=== PATIENT | male | born 1960 | race African-American/Black ===

== ENCOUNTER 2025-04-01 14:04 | Outpatient (AMB) | payer OTHER, SELFPAY ==
--- OUTSIDE RECORDS SUMMARY | 2025-04-01 14:51 | XMS_ITS ---
Author Name [facility] Organization Unknown History of Medication Use Medication Directions Dispensed Refills Start Date End Date Stat us hydroCHLOROthiazide (HYDRODIURIL) tablet 12.5 mg 12.5 mg, oral, Daily, First dose on Tue07/18/24 at 0900, Phase II/On Unit 07/18/2024 active pantoprazole (PROTONIX) EC tablet 40 mg 40 mg, oral, Every morning before breakfast, First dose on Tue07/18/24 at 0700, Phase II/On Unit, Do not crush, chew, or split. 07/18/2024 active senna-docusate (PERICOLACE) 8.6-50 mg per tablet 1 tablet 1 tablet, oral, 2 times daily, First dose on Tue07/17/24 at 2100, Phase II/On Unit, Start evening POD#0 Hold for loose stools Hold for patients with history of IBS, IBO, ileostomy 07/18/2024 active aspirin 81 mg EC tablet Take 1 tablet (81 mg total) by mouth 2 (two) times a day. 07/17/2024 08/29/19 25 active docusate sodium (COLACE) 100 mg capsule Take 1 capsule (100 mg total) by mouth 2 (two) times a day. 07/17/2024 08/17/19 25 active ibuprofen (ADVIL,MOTRIN) 800 mg tablet Take 1 tablet (800 mg total) by mouth 3 (three) times a day. 07/17/2024 08/17/19 25 active acetaminophen (TYLENOL) tablet 1,000 mg 1,000 mg, oral, Once, On Tue07/17/24 at 0730, For 1 dose, Preprocedure, Do NOT administer to patients with abnormal LFTs. Do NOT exceed 3,000mg (3g) in 24 hours. 07/17/2024 07/17/20 24 completed ceFAZolin (ANCEF) 2 g in sterile water 20 mL IV syringe 2 g, intravenous, Administer over 3 Minutes, Every 8 hours scheduled, First dose on Tue07/17/24 at 1830, For 1 dose, Phase II/On Unit, Give 8 hours after the intra-op dose, Indication: Prophylaxis-Giancarlo gical 07/17/2024 07/17/20 completed meloxicam (MOBIC) tablet 15 mg 15 mg, oral, Daily, First dose on Tue07/18/24 at 0900, Phase II/On Unit, DO NOT give for patients >80y.o. or eCrCl<15 mL/min <75yo: dose 15mg 75-80yo: dose 7.5mg 07/17/2024 07/17/20 active magnesium hydroxide (MILK OF MAGNESIA) 400 mg/5 mL suspension 30 mL 07/17/2024 active oxyCODONE (ROXICODONE) immediate release tablet 10 mg 10 mg, oral, Every 4 hours PRN, moderate pain, Pain scale 4-6, Starting on Tue07/17/24 at 1244, Recovery & On Unit 07/17/2024 active hydroCHLOROthiazide 12.5 mg tablet Take 1 tablet (12.5 mg total) by mouth 1 (one) time each day. 06/20/2024 active celecoxib (CeleBREX) 200 mg capsule Take 1 capsule (200 mg total) by mouth 1 (one) time each day if needed. 07/25/2023 07/18/20 aborted omeprazole (PriLOSEC) [address] capsule Take 2 capsules (40 mg total) by mouth 1 (one) time each day. 11/12/2022 active Allergies Allergen Reaction Severity Comment Documented Date Source Statu s EGG NAUSEA AND VOMITING 06/13/2020 [facility] active LISINOPRIL LOW BLOOD PRESSURE 09/10/2016 [facility] active Problems Problem Status Onset Date Problem Type Date of Resolution Source Esophagitis, Lamar grade B active 2019-01-04 ProblemAct [facility] Anxiety active 2012-10-23 ProblemAct [facility] Benign prostatic hyperplasia without lower urinary tract symptoms active 2023-03-14 ProblemAct [facility] Gait instability active 2023-09-13 ProblemAct C [facility]SFRAN Hemorrhoids active 2013-06-14 ProblemAct [facility] Hypertension active 2018-04-18 ProblemAct [facility] Vitamin D deficiency active 2018-05-16 ProblemAct [facility] Gastritis and duodenitis active 2019-01-04 ProblemAct [facility] Fatty liver active 2016-01-29 ProblemAct [facility] Primary osteoarthritis of right hip active 2023-09-13 ProblemAct [facility] Anemia active 2023-03-14 ProblemAct [facility] Tubular adenoma active 2017-10-[address] [facility] S/P total right hip arthroplasty active 2024-07-17 ProblemAct [facility] Depression active 2010-09-24 ProblemAct [facility] RAN Gait abnormality active EncounterDiagnosisAct HHCCT Encounters Encounter Type Encounter Reason Primary Diagnosis Location Date Ambulatory Presence of right artificial hip joint Presence of right artificial hip joint [facility] 07/17/2024 Care Team Organization Name Specialty Phone Email Start Date End Da te [facility] 02/01/2025 [facility] 01/24/2025 [facility] 07/08/2024 [facility] 07/06/2024
--- OUTSIDE RECORDS SUMMARY | 2025-04-01 14:51 | XMS_ITS | Clinical Summary ---
Author Organization 175 [facility] Address [address] [place] [address] Phone Care Team Providers Care Warehouse Order Puller Name Role Phone Katiuska Hawley MD Primary Care Provider [phone] Allergies Active Allergy Reactions Criticality Noted Date Comments Egg Nausea And Vomiting Low 06/13/2020 Lisinopril Low blood pressure 09/10/2016 Medications blood pressure monitor (Blood Pressure Kit) kit 3 Active omeprazole (PriLOSEC) [address] capsule TAKE 1 CAPSULE BY MOUTH EVERY DAY 90 capsule 3 5 Active amLODIPine (NORVASC) 5 mg tabletIndications :Essential (primary) hypertension Take 1 tablet (5 mg total) by mouth 1 (one) time each day. 90 tablet 2 5 Active hydroCHLOROthiazi de (HYDRODIURIL) 25 mg tablet Take 1 tablet (25 mg total) by mouth 1 (one) time each day. 90 tablet 2 5 Active Active Problems Problem Noted Date Diagnosed Date S/P total right hip arthroplasty 07/17/2024 Gait instability 09/13/2023 Primary osteoarthritis of right hip 09/13/2023 Anemia 03/14/2023 Benign prostatic hyperplasia without lower urinary tract symptoms 03/14/2023 Esophagitis, [place] grade B 01/04/2019 Gastritis and duodenitis 01/04/2019 Vitamin D deficiency 05/16/2018 Hypertension 04/18/2018 Tubular adenoma 10/11/2017 Fatty liver 01/29/2016 Hemorrhoids 06/14/2013 Anxiety 10/23/2012 Depression 09/24/2010 Encounters Date Type Department Care Team Description 02/27/2025 11:30 AM EDT Office Visit Internal Medicine - [address] [place] [address] Katiuska Hawley MD Adult general medical examination (Primary Dx); Screening for colorectal cancer; Anemia, unspecified type; Vitamin D deficiency; Primary hypertension; Screening for malignant neoplasm of prostate; Essential (primary) hypertension from Last 3 Months Surgical History Surgery Date Site/Laterality Comments TONSILLECTOMY PROCEDURE: HISTORICAL TONSILLECTOMY COLONOSCOPY PROCEDURE: HISTORICAL COLONOSCOPY ADENOIDECTOMY tonsillectomy Medical History Medical History Date Comments Anxiety 10/23/2012 DX:Anxiety Depression 09/24/2010 DX:Depression Hemorrhoids 06/14/2013 DX:Hemorrhoids Hypertension 04/18/2018 DX:Hypertension Tubular adenoma 10/11/2017 DX:Tubular adeno ma Vitamin D deficiency 05/16/2018 DX:Vitamin D deficiency Fatty liver 01/29/2016 DX:Fatty liver Esophagitis, [place] grade B 01/04/2019 DX:Esophagitis, [place] grade B Duodenitis 01/04/2019 DX:Duodenitis Esophageal stenosis 01/04/2019 DX:Esophagea l stenosis Colon polyps DX:Colon polyps Anemia DX:Anemia Family History Medical History Relation Name Comments Colon cancer Neg Hx Social History Tobacco Use Types Packs/Day Years Used Date Smoking Tobacco: Former Smokeless Tobacco: Never Alcohol Use Standard Drinks/Week Comments Yes 6 (1 standard drink = 0.6 oz pur e alcohol) 5-6 beers last etoh 1 week ago Housing Instability Answer Date Recorde d Are you worried that in the next 2 months you may not have stable housing? No 02/21/2025 Food Access & Nutrition Answer Date Rec orded Do you have access to a vari ety of food including fruits and vegetables? Yes 02/21/2025 Access to Healthcare Answer Date Record ed Within the last 3 months, carlos w many times did you visit the emergency department for your medical care? 0 02/21/2025 Health Literacy Answer Date Recorded How often do you need to hav e someone help you when you read instructions, pamphlets, or other written material from your doctor or pharmacy? Never 02/21/2025 Caregiver: How often do you need to have someone help you when you read instructions, pamphlets, or other written material from your doctor or pharmacy? Not on file 02/21/2025 Financial Risk Answer Date Recorded How hard is it for you to pa y for the very basics like food, housing, medical care, and air conditioning / heating? Not very hard 02/21/2025 Transportation Answer Date Recorded Has the lack of transportati on kept you from meetings, work, or from getting things needed for daily living? No Has the lack of transportati on kept you from medical appointments or from getting medications? No 02/21/2025 Social Isolation Answer Date Recorded How often do you feel lonely or isolated from those around you? Sometimes 02/21/2025 Food Risk Answer Date Recorded Within the past 12 months we worried whether our food would run out before we got money to buy more. Never true 02/21/2025 Within the past 12 months th e food we bought just didn't last and we didn't have money to get more. Never true 02/21/2025 Dependent Care Answer Date Recorded Do you need help finding or paying for care for your loved ones. For example, child adolescent psychiatrist or elderly care for an older adult? No 02/21/2025 Education Answer Date Recorded Do you think completing more education or training, like finishing a GED, going to college, or learning a trade, would be helpful for you? N/A 02/21/2025 Employment and Income Answer Date Recor ded During the last four weeks, have you been actively looking for work? No 02/21/2025 Living Situation Answer Date Recorded What is your living situation? 0 02/21/2025 Interpersonal Safety Answer Date Record ed Physical Abuse 07/17/2024 Verbal Abuse 07/17/2024 Sex and Gender Information Value Date Recorded Sex Assigned at Male 07/17/2024 6:08 AM EST Legal Sex Male 11:32 AM EST Gender Identity Male 07/17/2024 6:08 AM EST Sexual Orientation Not on file Obstetrics History Last Filed Vital Signs Vital Sign Reading Time Taken Comments Blood Pressure 132/82 02/27/2025 11:36 AM EDT Pulse 105 02/27/2025 11:36 AM EDT Temperature 36.4 C (97.5 F) 02/27/2025 11:36 AM EDT Respiratory Rate 18 02/27/2025 11:36 AM EDT Oxygen Saturation 99% 02/27/2025 11:36 AM EDT Inhaled Oxygen Concentration - - Weight 78 kg (172 lb) 02/27/2025 11:36 AM EDT Height 190.5 cm (6' 3 ) 02/27/2025 11:36 AM EDT Body Mass Index 21.5 02/27/2025 11:36 AM EDT Plan of Treatment Upcoming Encounters Date Type Department Care Team (Late st Contact Info) Description 05/08/2025 2:30 PM EDT Appointment [facility] [address] [place] [phone] Veronica Shannon MD [address] [address] 09/03/2025 1:00 PM EST Office Visit Internal Medicine - [place] [address] [address] Katiuska Hawley MD [address] [phone] Health Maintenance Due Date Last Done Comments DTaP,Tdap,and Td Vaccines (1 - Tdap) 1981 Pneumococcal Vaccine: 50+ Years (1 of 2 - PCV) 1981 Zoster Vaccines (1 of 2) 2012 Colorectal Cancer Screening: Stool Based Tests (FOBT/FIT) 07/24/2022 HIV Screening 07/24/2022 Hepatitis C Screening 07/24/2022 COVID-19 Vaccine (4 - 2023-2 5 season) 2024 08/27/2021, 12/24/2020, 11/26/2020 Influenza Vaccine (#1) 2025 Social Influencers of Health Screening 02/21/2026 02/21/2025 Hypertension/CHF/CAD Annual BMP Blood Test 02/27/2026 02/27/2025, 06/20/2024, 01/02/2024 Cholesterol Screening (Lipid Panel) 02/27/2030 02/27/2025, 02/24/2024 RSV Immunization Adult Patients (1 - 1-dose 75+ series) 2037 Depression Screening Completed 02/21/2025 HIB Vaccines Aged Out No longer eligi ble based on patient's age to complete this topic HPV Vaccines Aged Out No longer eligi ble based on patient's age to complete this topic Hepatitis A Vaccines Aged Out No long er eligible based on patient's age to complete this topic Hepatitis B Vaccines Aged Out No long er eligible based on patient's age to complete this topic IPV Vaccines Aged Out No longer eligi ble based on patient's age to complete this topic MMR Vaccines Aged Out No longer eligi ble based on patient's age to complete this topic Meningococcal ACWY Vaccine Aged Out N o longer eligible based on patient's age to complete this topic Meningococcal B Vaccine Aged Out No l onger eligible based on patient's age to complete this topic RSV Immunization Patients Under 20 months Aged Out No longer eligible b ased on patient's age to complete this topic Varicella Vaccines Aged Out No longer eligible based on patient's age to complete this topic Medical Devices Implanted Type Area Medicine Aide Device Identifier Shelf Expiration Date Model / Serial / Lot Solidback Acetabular Shell 60g - [id number] Implanted:Qty: 1 on 07/17/2024 by Vic Pierre MD at [facility] Hip Right: Hip [employer] [id number] 03/25/2026 700-04-60 G / / [id number] Hip Insert Acetab X3 10deg 36g - [id number] Implanted:Qty: 1 on 07/17/2024 by Vic Pierre MD at [facility] Hip Right: Hip [employer] [id number] 04/07/2028 623-10-36 G / / [id number] Hip Stem Acco Ii Sz8 127deg - [id number] Implanted:Qty: 1 on 07/17/2024 by Vic Pierre MD at [facility] Hip Right: Hip [employer] [id number] 05/10/2028 [id number] / / [id number] Hip Head Delta Radha 36mm 0 - [id number] Implanted:Qty: 1 on 07/17/2024 by Vic Pierre MD at [facility] Hip Right: Hip [employer] [id number] 01/27/2028 6570-0-13 [id number] Procedures Procedure Name Priority Date/Time Associated Diagnosis Comments PROSTATE SPECIFIC ANTIGEN SCREEN Routine 02/27/2025 12:08 PM EDT Screening for malignant neoplasm of prostate MAGNESIUM Routine 02/27/2025 12:08 PM EDT Screening for colorectal cancer Anemia, unspecified type Vitamin D deficiency Adult general medical examination Primary hypertension Screening for malignant neoplasm of prostate VITAMIN D 25 HYDROXY Routine 02/27/2025 12:08 PM EDT Screening for colorectal cancer Anemia, unspecified type Vitamin D deficiency Adult general medical examination Primary hypertension VITAMIN B12 Routine 02/27/2025 12:08 PM EDT Screening for colorectal cancer Anemia, unspecified type Vitamin D deficiency Adult general medical examination Primary hypertension THYROID STIMULATING HORMONE Routine 02/27/2025 12:08 PM EDT Screening for colorectal cancer Anemia, unspecified type Vitamin D deficiency Adult general medical examination Primary hypertension COMPLETE BLOOD COUNT Routine 02/27/2025 12:08 PM EDT Screening for colorectal cancer Anemia, unspecified type Vitamin D deficiency Adult general medical examination Primary hypertension LIPID PANEL WITH REFLEX TO DIRECT LDL Routine 02/27/2025 12:08 PM EDT Screening for colorectal cancer Anemia, unspecified type Vitamin D deficiency Adult general medical examination Primary hypertension COMPREHENSIVE METABOLIC PANEL Routine 02/27/2025 12:08 PM EDT Screening for colorectal cancer Anemia, unspecified type Vitamin D deficiency Adult general medical examination Primary hypertension HEMOGLOBIN A1C Routine 02/27/2025 12:08 PM EDT Screening for colorectal cancer Anemia, unspecified type Vitamin D deficiency Adult general medical examination Primary hypertension from Last 3 Months Results * Prostate specific antigen screen (02/27/2025 12:08 PM EDT) Pathologist [facility] [place] PSA 1.00 0.00 - 4.00 ng/mL LAB CHEMISTRY METHOD 02/27/2025 7:25 PM EDT [facility] Blood Venous blood specimen / Unknown Venipuncture / Unknown 02/27/2025 12:08 PM EDT 02/27/2025 12:08 PM EDT Narrative [facility] - 02/27/2025 7:25 PM EDT The Siemens Advia Centaur Chemiluminescent Immunoassay is used. Results obtained with different assay methods or kits cannot be used interchangeably. Results cannot be interpreted as absolute evidence of the presence or absence of malignant disease. us Katiuska Hawley MD LAB BLOOD ORDERABLES Final Res ult [facility] [address] [place] [address], * Lipid panel with reflex to direct LDL (02/27/2025 12:08 PM EDT) [facility] Cholesterol 188 0 - 200 mg/dL LAB CHEMISTRY METHOD 02/27/2025 7:33 PM EDT [facility] Triglycerides 63 0 - 150 mg/dL LAB CHEMISTRY METHOD 02/27/2025 7:33 PM EDT [facility] HDL 87 >=40 mg/dL LAB CHEMISTRY METHOD 02/27/2025 7:33 PM EDT [facility] LDL Calculated 88 0 - 100 mg/dL LAB CHEMISTRY METHOD 02/27/2025 7:33 PM EDT [facility] VLDL Cholesterol Napoleon 12.6 mg/dL LAB CHEMISTRY METHOD 02/27/2025 7:33 PM EDT [facility] Non HDL Chol. (LDL+VLDL) 101 <145 mg/dL LAB CHEMISTRY METHOD 02/27/2025 7:33 PM EDT [facility] Chol/HDL Ratio 2.2 0.0 - 4.4 LAB CHEMISTRY METHOD 02/27/2025 7:33 PM EDT [facility] Blood Venous blood specimen / Unknown Venipuncture / Unknown 02/27/2025 12:08 PM EDT 02/27/2025 12:08 PM EDT us Katiuska Hawley MD LAB BLOOD ORDERABLES Final Res ult Performing Organization Address City/[facility]/ZIP Co de Phone Number [facility] [address] [place] [address], [place] [phone] * Vitamin D 25 hydroxy (02/27/2025 12:08 PM EDT) Pathologist [facility] [place] Vit D, 25-Hydroxy 31.4 30.0 - 80.0 ng/mL LAB CHEMISTRY METHOD 02/27/2025 7:25 PM EDT [facility] Blood Venous blood specimen / Unknown Venipuncture / Unknown 02/27/2025 12:08 PM EDT 02/27/2025 12:08 PM EDT us Katiuska Hawley MD LAB BLOOD ORDERABLES Final Res ult Performing Organization Address [facility]/ZIP Co de Phone Number [facility] [address] [place] [address], [place] [phone] * (ABNORMAL) Complete blood count (02/27/2025 12:08 PM EDT) WBC 4.8 4.8 - 10.8 K/mcL LAB HEMETOLOGY METHOD 02/27/2025 2:20 PM EDT [facility] RBC 4.90 4.50 - 5.50 M/mcL LAB HEMETOLOGY METHOD 02/27/2025 2:20 PM EDT [facility] Hemoglobin 14.3 13.5 - 17.5 g/dL LAB HEMETOLOGY METHOD 02/27/2025 2:20 PM EDT [facility] Hematocrit 42.9 42.0 - 54.0 % LAB HEMETOLOGY METHOD 02/27/2025 2:20 PM EDT [facility] MCV 87.6 79.0 - 98.0 FL LAB HEMETOLOGY METHOD 02/27/2025 2:20 PM EDT [facility] MCH 29.2 27.0 - 32.0 pcg LAB HEMETOLOGY METHOD 02/27/2025 2:20 PM EDT [facility] MCHC 33.3 32.0 - 37.0 g/dL LAB HEMETOLOGY METHOD 02/27/2025 2:20 PM EDT [facility] RDW 14.6 11.0 - 15.0 % LAB HEMETOLOGY METHOD 02/27/2025 2:20 PM EDT [facility] Platelets 185 130 - 400 K/mcL LAB HEMETOLOGY METHOD 02/27/2025 2:20 PM EDT [facility] MPV 12.1(H) 7.0 - 11.0 FL LAB HEMETOLOGY METHOD 02/27/2025 2:20 PM EDT [facility] NRBC 0.0 <1.0 % LAB HEMETOLOGY METHOD 02/27/2025 2:20 PM EDT [facility] NRBC Absolute 0.00 <0.10 K/mcL LAB HEMETOLOGY METHOD 02/27/2025 2:20 PM EDT [facility] Blood Venous blood specimen / Unknown Venipuncture / Unknown 02/27/2025 12:08 PM EDT 02/27/2025 12:08 PM EDT us Katiuska Hawley MD LAB BLOOD ORDERABLES Final Res ult [facility] [address] [place] [address], * Thyroid stimulating hormone (02/27/2025 12:08 PM EDT) Pathologist [facility] TSH 1.03 0.40 - 4.00 mcIU/mL LAB CHEMISTRY METHOD 02/27/2025 7:54 PM EDT [facility] Blood Venous blood specimen / Unknown Venipuncture / Unknown 02/27/2025 12:08 PM EDT 02/27/2025 12:08 PM EDT Katiuska Hawley MD LAB BLOOD ORDERABLES Final Res ult [facility] [address] [place] [address], [place] [phone] * Magnesium (02/27/2025 12:08 PM EDT) [facility] Magnesium 2.0 1.9 - 2.6 mg/dL LAB CHEMISTRY METHOD 02/27/2025 7:05 PM EDT [facility] Blood Venous blood specimen / Unknown Venipuncture / Unknown 02/27/2025 12:08 PM EDT 02/27/2025 12:08 PM EDT Katiuska Hawley MD LAB BLOOD ORDERABLES Final Res ult [facility] [address] [place] [address], [place] [phone] * Hemoglobin A1c (02/27/2025 12:08 PM EDT) [facility] Hemoglobin A1C 5.7 <6.5 % LAB CHEMISTRY METHOD 02/27/2025 5:13 PM EDT [facility] Mean Bld Glu Estim. 117 mg/dL LAB CHEMISTRY METHOD 02/27/2025 5:13 PM EDT [facility] Blood Venous blood specimen / Unknown Venipuncture / Unknown 02/27/2025 12:08 PM EDT 02/27/2025 12:08 PM EDT us Katiuska Hawley MD LAB BLOOD ORDERABLES Final Res ult [facility] [address] [place] [address], [place] [phone] * Vitamin B12 (02/27/2025 12:08 PM EDT) Pathologist [facility] [place] Vitamin B-12 630 250 - 900 pcg/mL LAB CHEMISTRY METHOD 02/27/2025 7:28 PM EDT [facility] Blood Venous blood specimen / Unknown Venipuncture / Unknown 02/27/2025 12:08 PM EDT 02/27/2025 12:08 PM EDT us Katiuska Hawley MD LAB BLOOD ORDERABLES Final Res ult Performing Organization Address City/[facility]/ZIP Co de Phone Number [facility] [address] [place] [address], [place] [phone] * (ABNORMAL) Comprehensive metabolic panel (02/27/2025 12:08 PM EDT) [facility] Sodium 140 133 - 145 mmol/L LAB CHEMISTRY METHOD 02/27/2025 7:28 PM T [facility] Potassium 3.6 3.5 - 5.5 mmol/L LAB CHEMISTRY METHOD 02/27/2025 7:28 PM EDT [facility] Chloride 106 96 - 110 mmol/L LAB CHEMISTRY METHOD 02/27/2025 7:28 PM T [facility] CO2 27 21 - 32 mmol/L LAB CHEMISTRY METHOD 02/27/2025 7:28 PM EDT [facility] Anion Gap 7 3 - 11 LAB CHEMISTRY METHOD 02/27/2025 7:28 PM [facility] Glucose 88 70 - 100 mg/dL LAB CHEMISTRY METHOD 02/27/2025 7:28 PM EDT [facility] BUN 17 5 - 25 mg/dL LAB CHEMISTRY METHOD 02/27/2025 7:28 PM [facility] Creatinine 0.70 0.70 - 1.30 mg/dL LAB CHEMISTRY METHOD 02/27/2025 7:28 PM [facility] eGFR 104 >=60 mL/min/1. 73m2 LAB CHEMISTRY METHOD 02/27/2025 7:28 PM [facility] Comment:Calculation based on the Chronic Kidney Disease Epidemiology Collaboration (CKD-EPI) equation refit without adjustment for race. BUN/Creatinine Ratio 24.3 LAB CHEMISTRY METHOD 02/27/2025 7:28 PM [facility] Calcium 9.1 8.5 - 10.5 mg/dL LAB CHEMISTRY METHOD 02/27/2025 7:28 PM [facility] AST (SGOT) 52(H) 10 - 42 unit/L LAB CHEMISTRY METHOD 02/27/2025 7:28 PM [facility] ALT (SGPT) 57 10 - 60 unit/L LAB CHEMISTRY METHOD 02/27/2025 7:28 PM [facility] Alkaline Phosphatase 80 42 - 121 unit/L LAB CHEMISTRY METHOD 02/27/2025 7:28 PM [facility] Total Protein 7.7 6.0 - 8.0 g/dL LAB CHEMISTRY METHOD 02/27/2025 7:28 PM [facility] Albumin 4.0 3.2 - 5.0 g/dL LAB CHEMISTRY METHOD 02/27/2025 7:28 PM [facility] Total Bilirubin 0.6 0.0 - 1.4 mg/dL LAB CHEMISTRY METHOD 02/27/2025 7:28 PM [facility] Blood Venous blood specimen / Unknown Venipuncture / Unknown 02/27/2025 12:08 PM EDT 02/27/2025 12:08 PM EDT us Katiuska Hawley MD LAB BLOOD ORDERABLES Final Res ult DAILY [facility] [address] [place] [address], from Last 3 Months Insurance [employer] Advance Directives * Full Code - Confirmed (Latest Code Status on File) Date Activated Date Inactivated Comments 07/17/2024 12:57 PM 07/18/2024 3:09 PM This code s tatus was ascertained in the following way: Code status discussion: discussion with patient To update the patient's code status, place a code status order. Do not modify or discontinue any currently active code status orders. * Full Code - Confirmed Date Activated Date Inactivated Comments 07/17/2024 7:07 AM 07/17/2024 12:57 PM This code s tatus was ascertained in the following way: Code status discussion: discussion with patient To update the patient's code status, place a code status order. Do not modify or discontinue any currently active code status orders. Care Teams Warehouse Order Puller Relationship Specialty Start Date End Date Katiuska Hawley MD [address] [facility] [address] [place] [phone] PCP - General Internal Medicine 06/27/18
--- OUTSIDE RECORDS SUMMARY | 2025-04-01 14:51 | XMS_ITS | Clinical Summary ---
Author Organization [facility] Address [address] [place] [address] Care Team Providers Care Dump Worker Name Role Phone Katiuska Hawley MD Primary Care Provider [phone] Encounters Date Type Department Care Team Description 01/24/2025 Transcribe Orders [address] [phone] Niurka Prather MD Gait abnormality (Primary Dx) from Last 3 Months Social History Tobacco Use Types Packs/Day Years Used Date Smoking Tobacco: Never Assessed Sex and Gender Information Value Date Recorded Sex Assigned at Not on file Legal Sex Male 8:37 AM EDT Gender Identity Not on file Sexual Orientation Not on file Plan of Treatment Upcoming Encounters Date Type Department Care Team (Late st Contact Info) Description 04/22/2025 11:00 AM EDT Office Visit [facility] Neurology [address] [phone] Niurka Prather MD [address] [place] [address] Artie Allred MD [address] [place] [address] Health Maintenance Due Date Last Done Comments Hepatitis C Virus Screening 1962 HIV Screening 11/01/1975 DTaP/Tdap/Td Vaccines (1 - Tdap) 1981 Colonoscopy 11/01/2007 Pneumococcal Vaccines 50+ (1 of 1 - PCV) 2012 Zoster (Shingles) Vaccine (1 of 2) 2012 COVID-19 Vaccine ( - 2023-2 5 season) 2024 Influenza Vaccine 03/15/2025 RSV Vaccine 60 years and old er and Patients (1 - 1-dose 75+ series) 2037 Hepatitis B Vaccines Aged Out No long er eligible based on patient's age to complete this topic [facility] Care Teams Dump Worker Relationship Specialty Start Date End Date Katiuska Hawley MD [address] [place] [address] [address] [place] [address] PCP - General 01/24/25
--- OUTSIDE RECORDS SUMMARY | 2025-04-01 14:51 | XMS_ITS | Patient Health Record ---
Author [facility] Address [address] [place] [address] Care Team Providers Care Impress Associate Name Role Phone Thor Smith DO Primary Care Provider Jimbo Melo Unavailable [phone] Reason For Referral No Information Medications Medication SIG (Take, Route, Frequency, Duration) Notes Start Date End Date Status Erythromycin Base 250 MG Oral; Duration: 7 Unknown amLODIPine Besylate 5 MG 1 tablet Orally Once a day Active Lisinopril-hydroCHLOROthiaz gina 10-12.5 MG Oral; Duration: 30 Unknown Social History Tobacco use other than smoking: Question Answer Notes Are you an other tobacco user? No Problems Problem Type SNOMED Code ICD Code Onset Dates Problem Status W/U Status Risk Notes Problem Pain in limb (56189397) Pain in unspecified foot (M79.673) Active confirmed Plan Of Treatment Pending Test Test Name Order Date X ray : Foot, right 3V 11/14/2015 Insurance Providers Payer Name Payer Address Payer Phone Subscriber Number Group Number Insured Name Patient Relationship to Insured Coverage Start Date Coverage End Date [employer] [address] [place] [address] [phone] [id number] Norman Bailey Self - patient is the insured 6 Medical (General) History Medical History History ICD Code Alcoholic hepatitis Anxiety Colonic polyps Angina chronic cough Depression Hemorrhoids Hypertension Chicken pox Surgical History Surgery Date(Month/Year) tonsillectomy
== END 2025-04-01 14:05 | disposition home or self-care (01) ==
LOC: HO.HMGAL 14:04
PROVIDERS: PCP Internal Medicine; Visit Provider Registered Nurse Emergency
DX: J30.89 Other allergic rhinitis (principal)
CPT/HCPCS: 95117; 95165

== ENCOUNTER 2025-04-29 11:18 | Outpatient (AMB) | payer OTHER, SELFPAY ==
--- OUTSIDE RECORDS SUMMARY | 2025-04-29 15:20 | XMS_ITS | Clinical Summary ---
Author Organization [facility] Address [address] [place] [address] Phone Care Team Providers Care Fill Technician Name Role Phone Katiuska Hawley MD Primary Care Provider [phone] Allergies Active Allergy Reactions Criticality Noted Date Comments Egg Nausea And Vomiting Low 06/13/2020 Lisinopril Low blood pressure 09/10/2016 Medications blood pressure monitor (Blood Pressure Kit) kit 3 Active omeprazole (PriLOSEC) [address] capsule TAKE 1 CAPSULE BY MOUTH EVERY DAY 90 capsule 3 5 Active amLODIPine (NORVASC) 5 mg tabletIndication s:Essential (primary) hypertension Take 1 tablet (5 mg total) by mouth 1 (one) time each day. 90 tablet 2 5 Active hydroCHLOROthiaz gina (HYDRODIURIL) 25 mg tablet Take 1 tablet (25 mg total) by mouth 1 (one) time each day. 90 tablet 2 5 Active polyethylene glycol (Golytely) 236-22.74-6.74 -5.86 gram solution Take 4L by mouth once for one dose. May substitue any PEG. Starting at 2PM the day before your procedure drink 1 8oz glasses at your own pace until you complete half of the gallon. Finish 2nd half of the gallon at 8PM. 4000 mL 5 Active bisacodyL (DULCOLAX) 5 mg EC tablet Take 2 tablets by mouth right before beginning bowel prep. See instructions provided by the office 2 tablet 09/10/202 5 Active Active Problems Problem Noted Date Diagnosed Date S/P total right hip arthroplasty 07/17/2024 Gait instability 09/13/2023 Primary osteoarthritis of right hip 09/13/2023 Anemia 03/14/2023 Benign prostatic hyperplasia without lower urinary tract symptoms 03/14/2023 Esophagitis, [place]yer grade B 01/04/2019 Gastritis and duodenitis 01/04/2019 Vitamin D deficiency 05/16/2018 Hypertension 04/18/2018 Tubular adenoma 10/11/2017 Fatty liver 01/29/2016 Hemorrhoids 06/14/2013 Anxiety 10/23/2012 Depression 09/24/2010 Encounters Date Type Department Care Team Description 02/27/2025 11:30 AM EDT Office Visit Internal Medicine - [address] [place] [address] Katiuska Hawley MD Adult general [...] deficiency Fatty liver 01/29/2016 DX:Fatty liver Esophagitis, Dyer grade B 01/04/2019 DX:Esophagitis, Dyer grade B Duodenitis 01/04/2019 DX:Duodenitis Esophageal stenosis [...] Record ed Within the last 3 months, ho w many times did you visit the [...] care for your loved ones. For example, children teacher or elderly care for an older adult? [...] Info) Description 05/08/2025 2:30 PM EDT Appointment [facility] Endoscopy [address] [place] [address] Veronica Shannon MD [address] [address] 09/03/2025 1:00 PM EST Office Visit Internal [facility] - [place] [address] [phone] Katiuska Hawley MD [address] [phone] Health Maintenance Due Date Last Done Comments DTaP,Tdap,and Td Vaccines (1 - Tdap) 1981 Pneumococcal Vaccine: 50+ Years (1 of 2 - PCV) 1981 Zoster Vaccines (1 of 2) 2012 Colorectal Cancer Screening: Stool Based Tests (FOBT/FIT) 07/24/2022 HIV Screening 07/24/2022 Hepatitis C Screening 07/24/2022 COVID-19 Vaccine (4 - 2024-2 6 season) 2025 08/27/2021, 12/24/2020, 11/26/2020 Influenza Vaccine (#1) 2025 [...] this topic Medical Devices Implanted Type Area Otr Company Truck Driver Device Identifier Shelf Expiration Date Model / Serial / Lot Solidback Acetabular Shell 60g - [id number] Implanted:Qty: 1 on 07/17/2024 by Vic Pierre MD at [facility] Hip Right: Hip [employer] [id number] 03/25/2026 700-04-60 G / / [id number] Hip Insert Acetab X3 10deg 36g - [id number] Implanted:Qty: 1 on 07/17/2024 by Vic Pierre MD at [facility] Hip Right: Hip [employer] [id number] 04/07/2028 623-10-36 G / / [id number] Hip Stem Acco Ii Sz8 127deg - [id number] Implanted:Qty: 1 on 07/17/2024 by Vic Pierre MD at [facility] Hip Right: Hip [employer] [id number] 05/10/2028 0042-2406 / / [id number] Hip Head Delta Radha 36mm 0 - [id number] Implanted:Qty: 1 on 07/17/2024 by Vic Pierre MD at [facility] Hip Right: Hip [employer] [id number] 01/27/2028 6570-0-13 6 / / [id number] Procedures Procedure Name Priority Date/Time Associated Diagnosis [...] specific antigen screen (02/27/2025 12:08 PM EDT) PSA 1.00 0.00 - 4.00 ng/mL LAB CHEMISTRY METHOD 02/27/2025 7:25 PM EDT [facility] Blood Venous blood specimen / Unknown Venipuncture / Unknown 02/27/2025 12:08 PM EDT 02/27/2025 12:08 PM EDT Narrative [facility] - 02/27/2025 7:25 PM EDT The Siemens Advia Centaur Chemiluminescent Immunoassay is used. Results obtained with different assay methods or kits cannot be used interchangeably. Results cannot be interpreted as absolute evidence of the presence or absence of malignant disease. us Katiuska Hawley MD LAB BLOOD ORDERABLES Final Res ult [facility] [address] [place] [address], [place] [phone] * Lipid panel with reflex to direct LDL (02/27/2025 12:08 PM EDT) Cholesterol 188 0 - 200 mg/dL LAB CHEMISTRY METHOD 02/27/2025 7:33 PM EDT [facility] Triglycerides 63 0 - 150 mg/dL LAB CHEMISTRY METHOD 02/27/2025 7:33 PM EDT [facility] HDL 87 >=40 mg/dL LAB CHEMISTRY METHOD 02/27/2025 7:33 PM EDT [facility] LDL Calculated 88 0 - 100 mg/dL LAB CHEMISTRY METHOD 02/27/2025 7:33 PM EDT [facility] VLDL Cholesterol Napoleon 12.6 mg/dL LAB CHEMISTRY METHOD 02/27/2025 7:33 PM EDT [facility] Non HDL Chol. (LDL+VLDL) 101 <145 mg/dL LAB CHEMISTRY METHOD 02/27/2025 7:33 PM EDT [facility] Chol/HDL Ratio 2.2 0.0 - 4.4 LAB CHEMISTRY METHOD 02/27/2025 7:33 PM EDT [facility] Blood Venous blood specimen / Unknown Venipuncture / Unknown 02/27/2025 12:08 PM EDT 02/27/2025 12:08 PM EDT us Katiuska Hawley MD LAB BLOOD ORDERABLES Final Res ult Performing Organization Address City/[facility]/ZIP Co de Phone Number [facility] [address] [place] [address], [place] [phone] * Vitamin D 25 hydroxy (02/27/2025 12:08 PM EDT) Pathologist [facility] Vit D, 25-Hydroxy 31.4 30.0 - 80.0 ng/mL LAB CHEMISTRY METHOD 02/27/2025 7:25 PM EDT [facility] Blood Venous blood specimen / Unknown Venipuncture / Unknown 02/27/2025 12:08 PM EDT 02/27/2025 12:08 PM EDT Katiuska Hawley MD LAB BLOOD ORDERABLES Final Res ult [facility] [address] [place] [address], [place] [phone] * (ABNORMAL) Complete blood count (02/27/2025 12:08 PM EDT) [facility] WBC 4.8 4.8 - 10.8 K/mcL LAB HEMETOLOGY METHOD 02/27/2025 2:20 PM EDT [facility] RBC 4.90 4.50 - 5.50 M/mcL LAB HEMETOLOGY METHOD 02/27/2025 2:20 PM T [facility] Hemoglobin 14.3 13.5 - 17.5 g/dL LAB HEMETOLOGY METHOD 02/27/2025 2:20 PM T [facility] Hematocrit 42.9 42.0 - 54.0 % LAB HEMETOLOGY METHOD 02/27/2025 2:20 PM T [facility] MCV 87.6 79.0 - 98.0 FL LAB HEMETOLOGY METHOD 02/27/2025 2:20 PM [facility] MCH 29.2 27.0 - 32.0 pcg LAB HEMETOLOGY METHOD 02/27/2025 2:20 PM [facility] MCHC 33.3 32.0 - 37.0 g/dL LAB HEMETOLOGY METHOD 02/27/2025 2:20 PM [facility] RDW 14.6 11.0 - 15.0 % LAB HEMETOLOGY METHOD 02/27/2025 2:20 PM [facility] Platelets 185 130 - 400 K/mcL LAB HEMETOLOGY METHOD 02/27/2025 2:20 PM [facility] MPV 12.1(H) 7.0 - 11.0 FL LAB HEMETOLOGY METHOD 02/27/2025 2:20 PM [facility] NRBC 0.0 <1.0 % LAB HEMETOLOGY METHOD 02/27/2025 2:20 PM [facility] NRBC Absolute 0.00 <0.10 K/mcL LAB HEMETOLOGY METHOD 02/27/2025 2:20 PM [facility] Blood Venous blood specimen / Unknown Venipuncture / Unknown 02/27/2025 12:08 PM EDT 02/27/2025 12:08 PM EDT Katiuska Hawley MD LAB BLOOD ORDERABLES Final Res ult Performing Organization Address City/[facility]/ZIP Co de Phone Number [facility] [address] [place] [address], [place] [phone] * Thyroid stimulating hormone (02/27/2025 12:08 PM EDT) Pathologist [facility] TSH 1.03 0.40 - 4.00 mcIU/mL LAB CHEMISTRY METHOD 02/27/2025 7:54 PM EDT [facility] Blood Venous blood specimen / Unknown Venipuncture / Unknown 02/27/2025 12:08 PM EDT 02/27/2025 12:08 PM EDT Katiuska Hawley MD LAB BLOOD ORDERABLES Final Res ult Performing Organization Address City/[facility]/ZIP Co de Phone Number [facility] [address] [place] [address], [place] [phone] * Magnesium (02/27/2025 12:08 PM EDT) [facility] Magnesium 2.0 1.9 - 2.6 mg/dL LAB CHEMISTRY METHOD 02/27/2025 7:05 PM EDT [facility] Blood Venous blood specimen / Unknown Venipuncture / Unknown 02/27/2025 12:08 PM EDT 02/27/2025 12:08 PM EDT us Katiuska Hawley MD LAB BLOOD ORDERABLES Final Res ult [facility] [address] [place] [address], [place] [phone] * Hemoglobin A1c (02/27/2025 12:08 PM EDT) Pathologist [facility] Hemoglobin A1C 5.7 <6.5 % LAB CHEMISTRY METHOD 02/27/2025 5:13 PM EDT [facility] Mean Bld Glu Estim. 117 mg/dL LAB CHEMISTRY METHOD 02/27/2025 5:13 PM EDT [facility] Blood Venous blood specimen / Unknown Venipuncture / Unknown 02/27/2025 12:08 PM EDT 02/27/2025 12:08 PM EDT us Katiuska Hawley MD LAB BLOOD ORDERABLES Final Res ult [facility] [address] [place] [address], [place] [phone] * Vitamin B12 (02/27/2025 12:08 PM EDT) Pathologist [facility] Vitamin B-12 630 250 - 900 pcg/mL LAB CHEMISTRY METHOD 02/27/2025 7:28 PM EDT [facility] Blood Venous blood specimen / Unknown Venipuncture / Unknown 02/27/2025 12:08 PM EDT 02/27/2025 12:08 PM EDT us Katiuska Hawley MD LAB BLOOD ORDERABLES Final Res ult [facility] [address] [place] [address], [place] [phone] * (ABNORMAL) Comprehensive metabolic panel (02/27/2025 12:08 PM EDT) [facility] Sodium 140 133 - 145 mmol/L LAB CHEMISTRY METHOD 02/27/2025 7:28 PM EDT [facility] Potassium 3.6 3.5 - 5.5 mmol/L LAB CHEMISTRY METHOD 02/27/2025 7:28 PM EDT [facility] Chloride 106 96 - 110 mmol/L LAB CHEMISTRY METHOD 02/27/2025 7:28 PM [facility] CO2 27 21 - 32 mmol/L LAB CHEMISTRY METHOD 02/27/2025 7:28 PM [facility] Anion Gap 7 3 - 11 LAB CHEMISTRY METHOD 02/27/2025 7:28 PM [facility] Glucose 88 70 - 100 mg/dL LAB CHEMISTRY METHOD 02/27/2025 7:28 PM [facility] BUN 17 5 - 25 mg/dL LAB CHEMISTRY METHOD 02/27/2025 7:28 PM [facility] Creatinine 0.70 0.70 - 1.30 mg/dL LAB CHEMISTRY METHOD 02/27/2025 7:28 PM [facility] eGFR 104 >=60 mL/min/1. 73m2 LAB CHEMISTRY METHOD 02/27/2025 7:28 PM [facility] Comment:Calculation based on the Chronic Kidney Disease Epidemiology Collaboration (CKD-EPI) equation refit without adjustment for race. BUN/Creatinine Ratio 24.3 LAB CHEMISTRY METHOD 02/27/2025 7:28 PM [facility] Calcium 9.1 8.5 - 10.5 mg/dL LAB CHEMISTRY METHOD 02/27/2025 7:28 PM [facility] AST (SGOT) 52(H) 10 - 42 unit/L LAB CHEMISTRY METHOD 02/27/2025 7:28 PM [facility] ALT (SGPT) 57 10 - 60 unit/L LAB CHEMISTRY METHOD 02/27/2025 7:28 PM [facility] Alkaline Phosphatase 80 42 - 121 unit/L LAB CHEMISTRY METHOD 02/27/2025 7:28 PM [facility] Total Protein 7.7 6.0 - 8.0 g/dL LAB CHEMISTRY METHOD 02/27/2025 7:28 PM [facility] Albumin 4.0 3.2 - 5.0 g/dL LAB CHEMISTRY METHOD 02/27/2025 7:28 PM EDT [facility] Total Bilirubin 0.6 0.0 - 1.4 mg/dL LAB CHEMISTRY METHOD 02/27/2025 7:28 PM EDT [facility] Blood Venous blood specimen / Unknown Venipuncture / Unknown 02/27/2025 12:08 PM EDT 02/27/2025 12:08 PM EDT us Katiuska Hawley MD LAB BLOOD ORDERABLES Final Res ult [facility] [address] [place] [address], from Last 3 Months Insurance [employer] [...] currently active code status orders. Care Teams Fill Technician Relationship Specialty Start Date End Date Katiuska Hawley MD [address] [address] PCP - General Internal Medicine 06/27/18
--- OUTSIDE RECORDS SUMMARY | 2025-04-29 15:20 | XMS_ITS | Patient Health Record ---
Author Organization [facility] Address [address] [place] [address] Care Team Providers Care Iron Melter Name Role Phone Thor Smith DO Primary Care Provider Jimbo Melo Unavailable [phone] Reason For Referral No Information Medications Medication [...] Status Risk Notes Problem Pain in limb (26684059) Pain in unspecified foot (M79.673) Active confirmed Plan Of Treatment Pending Test Test Name Order Date X ray : Foot, right 3V 11/14/2015 Insurance Providers Payer Name Payer Address Payer Phone Subscriber Number Group Number Insured Name Patient Relationship to Insured Coverage Start Date Coverage End Date [employer] [address] [place] [id number] Norman Bailey Self - patient is the insured 6 Medical (General) History Medical History History ICD Code Alcoholic hepatitis Anxiety Colonic polyps Angina chronic cough Depression Hemorrhoids Hypertension Chicken pox Surgical History Surgery Date(Month/Year) tonsillectomy
--- OUTSIDE RECORDS SUMMARY | 2025-04-29 15:20 | XMS_ITS | Clinical Summary ---
Author Organization [facility] Address [address] [place] [address] Care Team Providers Care Configuration Consultant Name Role Phone Katiuska Hawley MD Primary Care Provider Allergies Active Allergy Reactions Criticality Noted Date Comments Egg Solids, Whole Nausea And Vomiting Low 0 Lisinopril Other (See Comments) Low 09/10/2016 Medications amLODIPine (NORVASC) 5 MG tablet Take 1 tablet (5 mg total) by mouth. 02/27/2025 Active hydroCHLOROthiaz gina (HYDRODIURIL) 25 MG tablet Take 1 tablet (25 mg total) by mouth. 02/27/2025 Active OMEprazole (PriLOSEC) 20 MG capsule Take by mouth. Active Active Problems Problem Noted Date Diagnosed Date Weakness 04/22/2025 Decreased sense of vibration 04/22/2025 Hyperreflexia 04/22/2025 S/P total right hip arthroplasty 07/17/2024 Gait disturbance 09/13/2023 Primary osteoarthritis of right hip 09/13/2023 Anemia 03/14/2023 Benign prostatic hyperplasia without lower urinary tract symptoms 03/14/2023 Esophagitis, [place] grade B 01/04/2019 Gastritis and duodenitis 01/04/2019 Vitamin D deficiency 05/16/2018 Hypertension 04/18/2018 Tubular adenoma 10/11/2017 Fatty liver 01/29/2016 Hemorrhoids 06/14/2013 Anxiety 10/23/2012 Depression 09/24/2010 Encounters Date Type Department Care Team Description 04/22/2025 11:00 AM EDT Office Visit [facility] [address] [address] Niurka Prather MD [place], [place], Weakness (Primary Dx); Decreased sense of vibration; Hyperreflexia; Gait disturbance 04/22/2025 Travel 04/11/2025 Telephone [facility] [address] [place] [phone] Artie Allred DO from Last 3 Months Family History Medical History Relation Name Comments Arthritis Father Norman Bailey Cancer Mother Shirley Bailey Hypertension Mother Shirley Bailey Asthma Sister Annabelle Rangel Relation Name Status Comments Father Norman Bailey Alive Mother Shirley Bailey Alive Sister Annabelle Rangel Alive Social History Tobacco Use Types Packs/Day Years Used Date Smoking Tobacco: Never Smokeless Tobacco: Never Alcohol Use Standard Drinks/Week Comments Yes 6 (1 standard drink = 0.6 oz pur e alcohol) PHQ-2 Answer Date Recorded PHQ-2 Total Score 0 04/20/2025 Sex and Gender Information Value Date Recorded Sex Assigned at Male 04/20/2025 11:00 AM EDT Legal Sex Male 8:37 AM EDT Gender Identity Not on file Sexual Orientation Heterosexual (straight) 04/20 11:00 AM EDT Last Filed Vital Signs Vital Sign Reading Time Taken Comments Blood Pressure 165/92 04/22/2025 10:51 AM EDT Pulse 88 04/22/2025 10:51 AM EDT Temperature - - Respiratory Rate - - Oxygen Saturation - - Inhaled Oxygen Concentration - - Weight 79.4 kg (175 lb) 04/22/2025 10:49 AM EDT Height 190.5 cm (6' 3 ) 04/22/2025 10:49 AM EDT Body Mass Index 21.87 04/22/2025 10:49 AM EDT Plan of Treatment Upcoming Encounters Date Type Department Care Team (Late st Contact Info) Description 07/22/2025 2:00 PM EST Office Visit [facility] [address] [place] [phone] Artie Allred DO [address] [place] [phone] Health Maintenance Due Date Last Done Comments Hepatitis C Virus Screening 1960 HIV Screening 11/01/1975 DTaP/Tdap/Td Vaccines (1 - Tdap) 1981 Colonoscopy 11/01/2007 Pneumococcal Vaccines 50+ (1 of 1 - PCV) 2012 Zoster (Shingles) Vaccine (1 of 2) 2012 RSV Vaccine 60 years and old er and Patients (1 - Risk 60-74 years 1-dose series) 2022 Influenza Vaccine 03/15/2025 COVID-19 Vaccine (1 - 2023-2 5 season) 2025 Hepatitis B Vaccines Aged Out No long er eligible based on patient's age to complete this topic Insurance [employer] [place] [id number] Care Teams Configuration Consultant Relationship Specialty Start Date End Date Katiuska Hawley MD [address] [place] [address] [address] [place] [address] PCP - General 01/24/25
== END 2025-04-29 11:19 | disposition home or self-care (01) ==
LOC: HO.HMGAL 11:18
PROVIDERS: Family Provider Internal Medicine; PCP Internal Medicine; Visit Provider Registered Nurse Emergency
DX: J30.89 Other allergic rhinitis (principal)
CPT/HCPCS: 95117; 95165

== ENCOUNTER 2025-05-29 14:17 | Outpatient (AMB) | payer OTHER, SELFPAY ==
--- OUTSIDE RECORDS SUMMARY | 2025-05-24 13:34 | XMS_ITS | Encounter Summary ---
Author Organization [facility] Address [address] [place] [address] Care Team Providers Care Marketing Instructor Name Role Phone Katiuska Hawley MD Primary Care Provider [phone] Reason for Referral * Imaging (Routine) - Closed Specialty Diagnoses / Procedures Referred By Contac t Referred To Contact Radiology Diagnoses Weakness Procedures MR Brain wo Contrast Isidro Rich MD [address] [place] [address] [place] [address] Phone: tel: fax: [address] Phone: tel: Referral ID Status Reason Start Date Expiration Date Visits Re quested Visits Authorized [id number] Closed 05/10/2025 05/10/2026 1 1 Reason for Visit * Imaging (Routine) - Closed Specialty Diagnoses / Procedures Referred By Contac t Referred To Contact Radiology Diagnoses Weakness Procedures MR Brain wo Contrast Isidro Rich MD [address] [facility] [place] [address] Phone: tel: fax: [address] Phone: tel: Referral ID Status Reason Start Date Expiration Date Visits Re quested Visits Authorized [id number] Closed 05/10/2025 05/10/2026 1 1 Encounter Details Date Type Department Care Team (Latest Contact Info) Description 05/24/2025 1:34 PM EDT - 05/24/2025 11:59 PM EDT Hospital Encounter Radiology Department - [address] [address] Weakness Discharge Disposition: Home or Self Care Social History Tobacco Use Types Packs/Day Years [...] ed Within the last 3 months, carlos foster many times did you visit the emergency [...] for your loved ones. For example, child psychology teacher or elderly care for an older [...] Date Recorded What is your living situation? Unrecognized valu e 02/21/2025 Interpersonal Safety Answer Date Record ed Physical Abuse Unrecognized value 05/08/2025 Verbal Abuse Unrecognized value 05/08/2025 Sex and Gender Information Value Date Recorded Sex Assigned at Male 07/17/2024 6:08 AM EST Legal Sex Male 11:32 AM EST Gender Identity Male 07/17/2024 6:08 AM EST Sexual Orientation Not on file documented as of this encounter Medications at Time of Discharge amLODIPine (NORVASC) 5 mg tabletIndications :Essential (primary) hypertension Take 1 tablet (5 mg total) by mouth 1 (one) time each day. 90 tablet 2 02/27/2025 bisacodyL (DULCOLAX) 5 mg EC tablet Take 2 tablets by mouth right before beginning bowel prep. See instructions provided by the office 2 tablet 04/24/2025 blood pressure monitor (Blood Pressure Kit) kit 07/24/2023 hydroCHLOROthiazi de (HYDRODIURIL) 25 mg tablet Take 1 tablet (25 mg total) by mouth 1 (one) time each day. 90 tablet 2 02/27/2025 omeprazole (PriLOSEC) [address] capsule TAKE 1 CAPSULE BY MOUTH EVERY DAY 90 capsule 3 10/26/2024 polyethylene glycol (Golytely) 236-22.74-6.74 -5.86 gram solution Take 4L by mouth once for one dose. May substitue any PEG. Starting at 2PM the day before your procedure drink 1 8oz glasses at your own pace until you complete half of the gallon. Finish 2nd half of the gallon at 8PM. 4000 mL 04/24/2025 documented as of this encounter Discharge Disposition Disposition Code Departure Means Destination Home or Self Care documented in this encounter Plan of Treatment Upcoming Encounters Date Type Department Care Team (Late st Contact Info) Description 09/03/2025 1:00 PM EST Office Visit Internal Medicine - [place] [address] [place] [address] Katiuska Hawley MD [address] [place] [address] documented as of this encounter Goals Goal Patient Goal Type Associated Problems Recent Progress Patient-Stated? Author Autogenera juventino Goal Care Plan Autogenerated Problem No Vibha Cummings documented as of this encounter Procedures Procedure Name Priority Date/Time Associated Diagnosis Comments MR BRAIN WO CONTRAST Routine 05/24/2025 3:18 PM EDT Weakness documented in this encounter Results * MR Brain wo Contrast (05/24/2025 3:18 PM EDT) Anatomical Region Laterality Modality Head and Neck Magnetic Resonan ce 05/24/2025 6:04 PM EDT Impressions 05/27/2025 8:06 AM EDT Nonspecific white matter signal abnormalities which can be seen with chronic small vessel ischemic disease, demyelinating disease, infection such as Lyme, vasculitis, and sequela of chronic migraine headaches. No evidence of a recent infarct. No mass or mass effect. -------- FINAL REPORT -------- Dictated By: Lora Orlando Dictated Date: 05/24/2025 18:04 ET Assigned Physician: Lora Orlando Reviewed and Electronically Signed By: Lora Orlando Signed Date: 05/27/2025 08:06 ET Workstation ID: [id number] Transcribed By: Self Edit Transcribed Date: 05/24/2025 18:31 ET Narrative 05/27/2025 8:06 AM EDT EXAM: Brain MRI HISTORY: Bilateral leg weakness. Sensory changes. COMPARISON: None CORRELATION: None TECHNIQUE: Exam performed on a 1.5 Alma high-field MRI scanner. Multiplanar imaging performed without contrast. FINDINGS: No restricted diffusion to indicate a recent infarct. No evidence of intracranial hemorrhage. Scattered foci and patchy globular areas of T2/FLAIR hyperintense signal in the periventricular, deep, and subcortical white matter. No evidence of a mass, mass effect, or midline shift. No hydrocephalus. Basal cisterns are patent. No cerebellar ectopia. Pituitary gland is not enlarged. Normal vascular flow-voids appear present in the major intracranial arteries at the skull base. Subcentimeter T1/T2 hyperintense round lesion in the right maxillary sinus likely represents a retention cyst or polyp. Mild mucosal thickening in the ethmoid sinuses. No significant fluid signal within mastoid air cells. Procedure Note Lora Orlando MD - 05/27/2025 EXAM: Brain MRI HISTORY: Bilateral leg weakness. Sensory changes. COMPARISON: None CORRELATION: None TECHNIQUE: Exam performed on a 1.5 Alma high-field MRI scanner.Multiplanar imaging performed without contrast. FINDINGS: No restricted diffusion to indicate a recent infarct. No evidence ofintracranial hemorrhage. Scattered foci and patchy globular areas ofT2/FLAIR hyperintense signal in the periventricular, deep, and subcorticalwhite matter. No evidence of a mass, mass effect, or midline shift. No hydrocephalus.Basal cisterns are patent. No cerebellar ectopia. Pituitary gland is notenlarged. Normal vascular flow-voids appear present in the majorintracranial arteries at the skull base. Subcentimeter T1/T2 hyperintense round lesion in the right maxillary sinuslikely represents a retention cyst or polyp. Mild mucosal thickening inthe ethmoid sinuses. No significant fluid signal within mastoid aircells. IMPRESSION: Nonspecific white matter signal abnormalities which can be seen withchronic small vessel ischemic disease, demyelinating disease, infectionsuch as Lyme, vasculitis, and sequela of chronic migraine headaches. Noevidence of a recent infarct. No mass or mass effect. -------- FINAL REPORT -------- Dictated By: Lora Orlando Dictated Date: 05/24/2025 18:04 ET Assigned Physician: Lora Orlando Reviewed and Electronically Signed By: Lora Orlando Signed Date: 05/27/2025 08:06 ET Workstation ID: [id number] Transcribed By: Self Edit Transcribed Date: 05/24/2025 18:31 ET Isidro Rich MD IMG MRI PROCEDURES Fin al Result documented in this encounter Visit Diagnoses Diagnosis Weakness Other malaise and fatigue documented in this encounter Additional Health Concerns Active Problems Noted Date Diagnosed Date Autogenerated Problem 05/14/2025 Assessment Noted Time PHQ-9 Depression Total Score: 0 02/22/20 25 3:27 PM EDT documented as of this encounter Care Teams Marketing Instructor Relationship Specialty Start Date End Date Katiuska Hawley MD [address] [id number] PCP - General Internal Medicine 06/27/18 documented as of this encounter
--- OUTSIDE RECORDS SUMMARY | 2025-05-24 13:35 | XMS_ITS | Encounter Summary ---
Author Organization [facility] Address [address] [place] [address] Care Team Providers Care Project Lead Name Role Phone Katiuska Hawley MD Primary Care Provider [phone] Reason for Referral * Imaging (Routine) - Closed Specialty Diagnoses / Procedures Referred By Contac t Referred To Contact Radiology Diagnoses Weakness Procedures MR Thoracic Spine wo Contrast Isidro Rich MD [address] [place] [address] [place] [address] Phone: tel: fax: [address] Phone: tel: Referral ID Status Reason Start Date Expiration Date Visits Re quested Visits Authorized [id number] Closed 05/10/2025 05/10/2026 1 1 Reason for Visit * Imaging (Routine) - Closed Specialty Diagnoses / Procedures Referred By Contac t Referred To Contact Radiology Diagnoses Weakness Procedures MR Thoracic Spine wo Contrast Isidro Rich MD [address] [place] [address] [place] [address] Phone: tel: fax: [address] Phone: tel: Referral ID Status Reason Start Date Expiration Date Visits Re quested Visits Authorized [id number] Closed 05/10/2025 05/10/2026 1 1 Encounter Details Date Type Department Care Team (Latest Contact Info) Description 05/24/2025 1:35 PM EDT - 05/24/2025 11:59 PM EDT Hospital Encounter Radiology Department - [address] [address] Weakness Discharge Disposition: Home or Self Care [...] for your loved ones. For example, child care development specialist or elderly care for an older adult? [...] PM EST Office Visit Internal Medicine - [place] [address] [place] [phone] Katiuska Hawley MD [address] [place] [address] documented as of this encounter Goals Goal Patient Goal Type Associated Problems Recent Progress Patient-Stated? Author Autogenera juventino Goal Care Plan Autogenerated Problem No Vibha Cummings documented as of this encounter Procedures Procedure Name Priority Date/Time Associated Diagnosis Comments MR THORACIC SPINE WO CONTRAST Routine 05/24/2025 3:28 PM EDT Weakness documented in this encounter Results * MR Thoracic Spine wo Contrast (05/24/2025 3:28 PM EDT) Anatomical Region Laterality Modality T-spine, Spine Magnetic Resonan ce 05/24/2025 7:01 PM EDT Impressions 05/27/2025 8:09 AM EDT No abnormal cord signal detected. Mild degenerative changes. -------- FINAL REPORT -------- Dictated By: Lora Orlando Dictated Date: 05/24/2025 19:01 ET Assigned Physician: Lora Orlando Reviewed and Electronically Signed By: Lora Orlando Signed Date: 05/27/2025 08:09 ET Workstation ID: [id number] Transcribed By: Self Edit Transcribed Date: 05/24/2025 19:15 ET Narrative 05/27/2025 8:09 AM EDT EXAM: MRI thoracic spine HISTORY: Weakness. Difficulty with gait. Sensory changes. COMPARISON: None CORRELATION: None TECHNIQUE: Exam performed on a 1.5 Alma high-field MRI scanner. Multiplanar imaging performed without contrast. FINDINGS: No abnormal cord signal detected. Vertebral body heights are maintained. Several subcentimeter T1 hyperintense signal lesions within the vertebral bodies likely represent hemangiomas. Fairly diffuse disc desiccation. T1-T2: Tiny central disc protrusion. Bilateral facet arthropathy. Mild bilateral neural foraminal narrowing. T2-T3: Disc bulging. Bilateral foraminal endplate spurring. Mild bilateral neural foraminal narrowing. No significant neural foraminal narrowing at other levels. No high-grade spinal canal stenosis at any level. Few bilateral bright T2 signal lesions in the kidneys which statistically represent cysts. 0.7 cm T2 hyperintense signal lesion within the posterior right hepatic lobe statistically represents a cyst or hemangioma. Procedure Note Lora Orlando MD - 05/27/2025 EXAM: MRI thoracic spine HISTORY: Weakness. Difficulty with gait. Sensory changes. COMPARISON: None CORRELATION: None TECHNIQUE: Exam performed on a 1.5 Alma high-field MRI scanner.Multiplanar imaging performed without contrast. FINDINGS: No abnormal cord signal detected. Vertebral body heights are maintained. Several subcentimeter [id number] signal lesions within the vertebral bodies likely representhemangiomas. Fairly diffuse disc desiccation. T1-T2: Tiny central disc protrusion. Bilateral facet arthropathy. Mildbilateral neural foraminal narrowing. T2-T3: Disc bulging. Bilateral foraminal endplate spurring. Mild bilateralneural foraminal narrowing. No significant neural foraminal narrowing at other levels. No high-gradespinal canal stenosis at any level. Few bilateral bright T2 signal lesions in the kidneys which statisticallyrepresent cysts. 0.7 cm T2 hyperintense signal lesion within the posteriorright hepatic lobe statistically represents a cyst or hemangioma. IMPRESSION: No abnormal cord signal detected. Mild degenerative changes. -------- FINAL REPORT -------- Dictated By: Lora Orlando Dictated Date: 05/24/2025 19:01 ET Assigned Physician: Lora Orlando Reviewed and Electronically Signed By: Lora Orlando Signed Date: 05/27/2025 08:09 ET Workstation ID: [id number] Transcribed By: Self Edit Transcribed Date: 05/24/2025 19:15 ET Isidro Rich MD IM MRI PROCEDURES Fin al Result documented in this encounter Visit Diagnoses Diagnosis Weakness Other malaise and fatigue documented in this encounter Additional Health Concerns Active Problems Noted Date Diagnosed Date Autogenerated Problem 05/14/2025 Assessment Noted Time PHQ-9 Depression Total Score: 0 02/22/20 25 3:27 PM EDT documented as of this encounter Care Teams Project Lead Relationship Specialty Start Date End Date Katiuska Hawley MD [address] [address] PCP - General Internal Medicine 06/27/18 documented as of this encounter
--- OUTSIDE RECORDS SUMMARY | 2025-05-24 13:35 | XMS_ITS | Encounter Summary ---
Author Organization [facility] Address [address] [place] [address] Care Team Providers Care Food Stylist Name Role Phone Katiuska Hawley MD Primary Care Provider [phone] Reason for Referral * Imaging (Routine) - Closed Specialty Diagnoses / Procedures Referred By Contac t Referred To Contact Radiology Diagnoses Weakness Procedures MR Cervical Spine wo Contrast Isidro Rich MD [address] [place] [address] [place] [address] Phone: tel: fax: [address] Phone: tel: Referral ID Status Reason Start Date Expiration Date Visits Re quested Visits Authorized [id number] Closed 05/10/2025 05/10/2026 1 1 Reason for Visit * Imaging (Routine) - Closed Specialty Diagnoses / Procedures Referred By Contac t Referred To Contact Radiology Diagnoses Weakness Procedures MR Cervical Spine wo Contrast Isidro Rich MD [address] [place] [address] [place] [address] Phone: tel: fax: [address] Phone: tel: Referral ID Status Reason Start Date Expiration Date Visits Re quested Visits Authorized [id number] Closed 05/10/2025 05/10/2026 1 1 Encounter Details Date Type Department Care Team (Latest Contact Info) Description 05/24/2025 1:35 PM EDT - 05/24/2025 11:59 PM EDT Hospital Encounter Radiology Department - [address] [address] Weakness Discharge Disposition: Home or Self Care [...] care for your loved ones. For example, early childhood associate teacher or elderly care for an older [...] PM EST Office Visit Internal Medicine - [place] [address] [place] [phone] Katiuska Hawley MD [address] [facility] [address] [place] [address] documented as of this encounter Goals Goal Patient Goal Type Associated Problems Recent Progress Patient-Stated? Author Autogenera juventino Goal Care Plan Autogenerated Problem No Vibha Cummings documented as of this encounter Procedures Procedure Name Priority Date/Time Associated Diagnosis Comments MR CERVICAL SPINE WO CONTRAST Routine 05/24/2025 2:47 PM EDT Weakness documented in this encounter Results * MR Cervical Spine wo Contrast (05/24/2025 2:47 PM EDT) Anatomical Region Laterality Modality C-spine, Spine Magnetic Resonan ce 05/24/2025 6:37 PM EDT Impressions 05/27/2025 8:07 AM EDT Multilevel degenerative changes. Moderate to severe spinal canal narrowing at C3-4. Multiple levels of neural foraminal narrowing, greatest at C3-4 on the right and C6-7 bilaterally. -------- FINAL REPORT -------- Dictated By: Lora Orlando Dictated Date: 05/24/2025 18:37 ET Assigned Physician: Lora Orlando Reviewed and Electronically Signed By: Lora Orlando Signed Date: 05/27/2025 08:07 ET Workstation ID: [id number] Transcribed By: Self Edit Transcribed Date: 05/24/2025 19:01 ET Narrative 05/27/2025 8:07 AM EDT EXAM: Cervical spine MRI HISTORY: Weakness. Sensory changes. Difficulty with gait. COMPARISON: None CORRELATION: None TECHNIQUE: Exam performed on a 1.5 Alma high-field MRI scanner. Multiplanar imaging performed without contrast. FINDINGS: Exam mildly limited by motion artifact. No definite cord signal abnormality, No significant narrowing at the craniocervical junction. Vertebral body heights are maintained. Multilevel anterior endplate osteophytes with most prominent bulky bridging osteophytes at C4-5. C2-3: Small central disc protrusion which partially effaces the anterior subarachnoid space. Bilateral uncovertebral spurring and moderate bilateral facet arthropathy. Moderately severe right and mild left neural foraminal narrowing. No significant spinal canal stenosis. C3-4: Loss of disc height with disc bulging which flattens the ventral cord. Bilateral uncovertebral spurring, right greater than left. Mild bilateral facet arthropathy. Severe right and mild to moderate left neural foraminal narrowing. Moderate to severe narrowing of the spinal canal. C4-5: Disc bulging which partially effaces the anterior subarachnoid space. Bilateral uncovertebral spurring, right greater than left. Mild facet arthropathy on the right. Mild to moderate right and mild left neural foraminal narrowing. No significant spinal canal stenosis. C5-6: Severe loss of disc height with possible partial bony fusion across the disc space. Posterior endplate spurring and bilateral uncovertebral spurring. Moderate right and mild left neural foraminal narrowing. Mild narrowing of the spinal canal. C6-7: Loss of disc height with disc bulging partially effacing the anterior subarachnoid space. Bilateral uncovertebral spurring, right greater than left. Mild facet arthropathy on the left. Moderate to severe bilateral neural foraminal narrowing. Mild to moderate narrowing of the spinal canal. C7-T1: Minimal disc bulging. Moderate bilateral facet arthropathy. No significant neural foraminal narrowing or spinal canal stenosis. Procedure Note Lora Orlando MD - 05/27/2025 EXAM: Cervical spine MRI HISTORY: Weakness. Sensory changes. Difficulty with gait. COMPARISON: None CORRELATION: None TECHNIQUE: Exam performed on a 1.5 Alma high-field MRI scanner.Multiplanar imaging performed without contrast. FINDINGS: Exam mildly limited by motion artifact. No definite cord signal abnormality, No significant narrowing at thecraniocervical junction. Vertebral body heights are maintained. Multilevel anterior endplateosteophytes with most prominent bulky bridging osteophytes at C4-5. C2-3: Small central disc protrusion which partially effaces the anteriorsubarachnoid space. Bilateral uncovertebral spurring and moderatebilateral facet arthropathy. Moderately severe right and mild left neuralforaminal narrowing. No significant spinal canal stenosis. C3-4: Loss of disc height with disc bulging which flattens the ventralcord. Bilateral uncovertebral spurring, right greater than left. Mildbilateral facet arthropathy. Severe right and mild to moderate left neuralforaminal narrowing. Moderate to severe narrowing of the spinal canal. C4-5: Disc bulging which partially effaces the anterior subarachnoidspace. Bilateral uncovertebral spurring, right greater than left. Mildfacet arthropathy on the right. Mild to moderate right and mild leftneural foraminal narrowing. No significant spinal canal stenosis. C5-6: Severe loss of disc height with possible partial bony fusion acrossthe disc space. Posterior endplate spurring and bilateral uncovertebralspurring. Moderate right and mild left neural foraminal narrowing. Mildnarrowing of the spinal canal. C6-7: Loss of disc height with disc bulging partially effacing theanterior subarachnoid space. Bilateral uncovertebral spurring, rightgreater than left. Mild facet arthropathy on the left. Moderate to severebilateral neural foraminal narrowing. Mild to moderate narrowing of thespinal canal. C7-T1: Minimal disc bulging. Moderate bilateral facet arthropathy. Nosignificant neural foraminal narrowing or spinal canal stenosis. IMPRESSION: Multilevel degenerative changes. Moderate to severe spinal canal narrowingat C3- 4. Multiple levels of neural foraminal narrowing, greatest at C3-4on the right and C6-7 bilaterally. -------- FINAL REPORT -------- Dictated By: Lora Orlando Dictated Date: 05/24/2025 18:37 ET Assigned Physician: Lora Orlando Reviewed and Electronically Signed By: Lora Orlando Signed Date: 05/27/2025 08:07 ET Workstation ID: [id number] Transcribed By: Self Edit Transcribed Date: 05/24/2025 19:01 ET Isidro Rich MD [facility] MRI PROCEDURES Fin al Result documented in this encounter Visit Diagnoses Diagnosis Weakness Other malaise and fatigue documented in this encounter Additional Health Concerns Active Problems Noted Date Diagnosed Date Autogenerated Problem 05/14/2025 Assessment Noted Time PHQ-9 Depression Total Score: 0 02/22/20 25 3:27 PM EDT documented as of this encounter Care Teams Food Stylist Relationship Specialty Start Date End Date Katiuska Hawley MD [address] [place] [phone] PCP - General Internal Medicine 06/27/18 documented as of this encounter
--- OUTSIDE RECORDS SUMMARY | 2025-05-29 18:02 | XMS_ITS | Clinical Summary ---
Author Organization [facility] Address [address] [place] [address] Care Team Providers Care Wire Straightener Name Role Phone Katiuska Hawley MD Primary Care Provider [phone] Allergies Active Allergy Reactions Criticality Noted Date [...] without lower urinary tract symptoms 03/14/2023 Esophagitis, Henry grade B 01/04/2019 Gastritis and duodenitis 01/04/2019 Vitamin D deficiency 05/16/2018 Hypertension 04/18/2018 Tubular adenoma 10/11/2017 Fatty liver 01/29/2016 Hemorrhoids 06/14/2013 Anxiety 10/23/2012 Depression 09/24/2010 Encounters Date Type Department Care Team Description 04/30/2025 Telephone [facility] Neurology [address] [phone] Artie Allred DO 04/22/2025 11:00 AM EDT Office Visit [facility] Neurology [address] [phone] Niurka Prather MD [place], [place], DO Weakness (Primary Dx); Decreased sense of vibration; Hyperreflexia; Gait disturbance 04/22/2025 Travel 04/11/2025 Telephone [facility] Neurology [address] [phone] Artie Allred DO from Last 3 Months [...] Description 07/22/2025 2:00 PM EST Office Visit [facility] Neurology [address] [phone] Artie Allred DO [address] [place] [address] [address] [place] [address] Health Maintenance Due Date Last Done Comments Hepatitis C Virus Screening 1962 DTaP/Tdap/Td Vaccines (1 - Tdap) 1981 Colonoscopy 11/01/2007 Pneumococcal Vaccines 50+ (1 of 1 - PCV) 2012 RSV Vaccine 50 years and old er and Patients (1 - Risk 50-74 years 1-dose series) 2012 Zoster (Shingles) Vaccine (1 of 2) 2012 Influenza Vaccine 03/15/2025 COVID-19 Vaccine ( - 2023-2 5 season) 2025 HIV Screening Completed 04/29/2025 Hepatitis B Vaccines Aged Out No long er eligible based on patient's age to complete this topic Procedures Procedure Name Priority Date/Time Associated Diagnosis Comments COMPLETE BLOOD COUNT, WITH DIFFERENTIAL Routine 05/13/2025 10:02 AM EDT Weakness COMPREHENSIVE METABOLIC PANEL Routine 05/13/2025 10:02 AM EDT Weakness FOLATE LEVEL Routine 04/29/2025 3:01 PM EDT Weakness COBALT LEVEL, WHOLE BLOOD Routine 04/29/2025 3:01 PM EDT Weakness LACTATE DEHYDROGENASE (LDH) Routine 04/29/2025 3:01 PM EDT Weakness ALDOLASE Routine 04/29/2025 3:01 PM EDT Weakness TISSUE TRANSGLUTAMINASE IGA AND IGG AB PANEL Routine 04/29/2025 3:01 PM EDT Weakness HIV 1/2 AG/AB CMIA REFLEX TO CONFIRMATION Routine 04/29/2025 3:01 PM EDT Weakness ZINC LEVEL Routine 04/29/2025 3:01 PM EDT Weakness COPPER, SERUM Routine 04/29/2025 3:01 PM EDT Weakness SYPHILIS JOSE REFLEX RPR TITER & TPPA Routine 04/29/2025 3:01 PM EDT Weakness ANGIOTENSIN CONVERTING ENZYME, SERUM Routine 04/29/2025 3:01 PM EDT Weakness IMMUNOFIXATION ELECTROPHORESIS, SERUM Routine 04/29/2025 3:01 PM EDT Weakness CREATINE KINASE (CK) Routine 04/29/2025 3:01 PM EDT Weakness C-REACTIVE PROTEIN Routine 04/29/2025 3: 01 PM EDT Weakness ERYTHROCYTE SEDIMENTATION RATE (ESR) Routine 04/29/2025 3:01 PM EDT Weakness DOUBLE STRAND DNA (DSDNA) ANTIBODY SCREEN, CRITHIDIA, REFLEX TITER Routine 04/29/2025 3:01 PM EDT Weakness RHEUMATOID FACTOR Routine 04/29/2025 3:0 1 PM EDT Weakness KHADRA IFA REFLEX TITER/PATTERN/CASCADE Routine 04/29/2025 3:01 PM EDT Weakness VITAMIN B6 Routine 04/29/2025 3:01 PM EDT Weakness VITAMIN B2, PLASMA Routine 04/29/2025 3: 01 PM EDT Weakness VITAMIN B1, WHOLE BLOOD Routine 04/29/20 25 3:01 PM EDT Weakness VITAMIN E Routine 04/29/2025 3:01 PM EDT Weakness FERRITIN Routine 04/29/2025 3:01 PM EDT Weakness IRON AND TOTAL IRON BINDING CAPACITY Routine 04/29/2025 3:01 PM EDT Weakness HOMOCYSTEINE, TOTAL, SERUM Routine 04/29/2025 3:01 PM EDT Weakness METHYLMALONIC ACID, SERUM Routine 04/29/2025 3:01 PM EDT Weakness LYME ANTIBODY, IGG, IGM SCREEN REFLEX WESTERN BLOT Routine 04/29/2025 3:01 PM EDT Weakness from Last 3 Months Results * (ABNORMAL) Complete Blood Count, with Differential (05/13/2025 10:02 AM EDT) Pathologist [facility] White Blood Cell Count 4.3 3.8 - 10.8 Thousand/ uL [facility] Red Blood Cell Count 4.49 4.20 - 5.80 Million/u L [facility] Hemoglobin 13.0(L) 13.2 - 17.1 g/dL [facility] Hematocrit 40.3 38.5 - 50.0 % [facility] MCV 89.8 80.0 - 100.0 fL [facility] MCH 29.0 27.0 - 33.0 pg [facility] MCHC 32.3 32.0 - 36.0 g/dL [facility] Comment: For adults, a slight decrease in the calculated MCHC value (in the range of 30 to 32 g/dL) is most likely not clinically significant; however, it should be interpreted with caution in correlation with other red cell parameters and the patient's clinical condition. RDW 13.6 11.0 - 15.0 % [facility] Platelet Count 201 140 - 400 Thousand/ uL [facility] MPV 11.7 7.5 - 12.5 fL [facility] Abs Neutrophils Auto 1,978 1,500 - 7,800 cells/uL [facility] Abs Lymphocytes Auto 1,617 850 - 3,900 cells/uL [facility] Abs Monocytes Auto 473 200 - 950 cells/uL [facility] Abs Eosinophils Auto 172 15 - 500 cells/uL [facility] Abs Basophils Auto 60 0 - 200 cells/uL [facility] Neutrophils Auto 46 % [facility] Lymphocytes Auto 37.6 % [email or web address] Monocytes Auto 11.0 % [facility] Eosinophils Auto 4.0 % [email or web address] Basophils Auto 1.4 % [facility] Blood Blood specimen / Unknown 05/13/2025 10:02 AM EDT 05/13/2025 10:03 AM EDT Narrative [facility] - 05/14/2025 7:28 AM EDT FASTING:YES FASTING: YES us Artie Allred DO LAB BLOOD ORDERABLES Final Resu lt [facility] [address] [place] [address] * Comprehensive Metabolic Panel (05/13/2025 10:02 AM EDT) Glucose 97 65 - 99 mg/dL [facility] Comment: Fasting reference interval Blood Urea Nitrogen (BUN) 16 7 - 25 mg/dL [facility] Creatinine 0.75 0.70 - 1.35 mg/dL [facility] Creatinine w/ eGFR 102 > OR = 60 mL/min/1. 73m2 [facility] BUN/Creatinine Ratio SEE NOTE: 6 - 22 (calc) [facility] Comment: Not Reported: BUN and Creatinine are within reference range. Sodium 144 135 - 146 mmol/L [facility] Potassium 4.4 3.5 - 5.3 mmol/L [facility] Chloride 105 98 - 110 mmol/L [facility] CO2 31 20 - 32 mmol/L [facility] Calcium 9.0 8.6 - 10.3 mg/dL [facility] Protein, Total 6.8 6.1 - 8.1 g/dL [facility] Albumin 4.0 3.6 - 5.1 g/dL [facility] Globulin 2.8 1.9 - 3.7 g/dL (calc) [facility] Albumin/Globuli n Ratio 1.4 1.0 - 2.5 (calc) [facility] Bilirubin, Total 0.4 0.2 - 1.2 mg/dL [facility] Alkaline Phosphatase 59 35 - 144 U/L [facility] Aspartate Aminotrans (AST) 28 10 - 35 U/L [facility] Alanine Aminotrans (ALT) 27 9 - 46 U/L [facility] Blood Blood specimen / Unknown 05/13/2025 10:02 AM EDT 05/13/2025 10:03 AM EDT Narrative [facility] - 05/14/2025 7:28 AM EDT FASTING:YES FASTING: YES [employer] LAB BLOOD ORDERABLES Final Resu lt Performing Organization Address [facility] Co de Phone Number [employer] [address] [place] [phone] * Iron and Total Iron Binding Capacity (04/29/2025 3:01 PM EDT) [facility] Iron 104 50 - 180 mcg/dL [facility] Total Iron Binding Capacity 280 250 - 425 mcg/dL (calc) [facility] Iron Saturation 37 20 - 48 % (calc) [facility] Blood Blood specimen / Unknown 04/29/2025 3:01 PM EDT 04/29/2025 3:03 PM EDT Narrative [facility] - 05/06/2025 1:09 PM EDT FASTING:YES FASTING: YES [employer] LAB BLOOD ORDERABLES Final Resu lt Performing Organization Address [facility] Co de Phone Number [employer] [address] [place] [phone] * KHADRA IFA reflex Titer/Pattern/[place] (04/29/2025 3:01 PM EDT) [facility] KHADRA Screen, IFA NEGATIVE NEGATIVE [facility] [employer] Comment: KHADRA IFA is a first line screen for detecting the presence of up to approximately 150 autoantibodies in various autoimmune diseases. A negative KHADRA IFA result suggests an KHADRA-associated autoimmune disease is not present at this time, and does not reflex further. If there is high clinical suspicion for Sjogren's syndrome, testing for anti-SS-A/Ro antibody should be considered. Anti-Breana-1 antibody should be considered for clinically suspected inflammatory myopathies. AC-0: Negative International Consensus on KHADRA Patterns (https://doi.org/10.1515/gfdj-4581-8363) For additional information, please refer to http://education.Eurocept/faq/RRV379 (This link is being provided for informational/ educational purposes only.) Blood Blood specimen / Unknown 04/29/2025 3:01 PM EDT 04/29/2025 3:03 PM EDT Narrative [facility] - 05/06/2025 1:09 PM EDT FASTING:YES FASTING: YES [email or web address] LAB BLOOD ORDERABLES Final Resu lt Performing Organization Address City/[facility]/ZIP Co de Phone Number [employer] [address] [place] [phone] * Double Strand DNA (dsDNA) Antibody Screen, Crithidia, Reflex Titer (04/29/2025 3:01 PM EDT) DNA (ds) Antibody Screen Negative Negative [facility] Blood Blood specimen / Unknown 04/29/2025 3:01 PM EDT 04/29/2025 3:03 PM EDT Narrative [facility] - 05/06/2025 1:09 PM EDT FASTING:YES FASTING: YES [email or web address] LAB BLOOD ORDERABLES Final Resu lt [facility]/[place] [address] [address] [place] [address] * Syphilis JOSE reflex RPR Titer & TPPA (04/29/2025 3:01 PM EDT) Syphilis JOSE NEGATIVE NEGATIVE [facility] Comment: No antibodies to T. pallidum (the agent causing syphilis) were detected in the specimen. This result, however, does not exclude very recent T. pallidum infection; testing of a second specimen, collected 2-4 weeks after this specimen, is recommended if the index of suspicion for recent infection is high. Blood Blood specimen / Unknown 04/29/2025 3:01 PM EDT 04/29/2025 3:03 PM EDT Narrative [facility] - 05/06/2025 1:09 PM EDT FASTING:YES FASTING: YES [employer] LAB BLOOD ORDERABLES Final Resu lt Performing Organization Address [facility] de Phone Number [employer] [address] [place] [phone] * HIV 1/2 Ag/Ab CMIA Reflex to Confirmation (04/29/2025 3:01 PM EDT) Pathologist [facility] HIV Final Interpretation HIV NEGATIVE [facility] Comment: HIV-1 antigen and HIV-1/HIV-2 antibodies were not detected. There is no laboratory evidence of HIV infection. HIV Ag/Ab, 4th Gen NON-REACTIV E NON-REAC TIVE [facility] Blood Blood specimen / Unknown 04/29/2025 3:01 PM EDT 04/29/2025 3:03 PM EDT Narrative [facility] - 05/06/2025 1:09 PM EDT FASTING:YES FASTING: YES [employer] LAB BLOOD ORDERABLES Final Resu lt Performing Organization Address [facility] de Phone Number [employer] [address] [place] [phone] * Tissue Transglutaminase IgA and IgG Ab Panel (04/29/2025 3:01 PM EDT) Pathologist [facility] Tissue Transglutaminase IgG Ab <1.0 U/mL [facility] Comment: Value Interpretation ----- <15.0 Antibody not detected > or = 15.0 Antibody detected Tissue Transglutaminase IgA Ab <1.0 U/mL [facility] Comment: Value Interpretation ----- <15.0 Antibody not detected > or = 15.0 Antibody detected Blood Blood specimen / Unknown 04/29/2025 3:01 PM EDT 04/29/2025 3:03 PM EDT Narrative [facility] - 05/06/2025 1:09 PM EDT FASTING:YES FASTING: YES [email or web address] LAB BLOOD ORDERABLES Final Resu lt Performing Organization Address [facility] Co de Phone Number [employer] [address] [place] [phone] * Lyme Ab IgG/IgM Screen Reflex Western Blot (04/29/2025 3:01 PM EDT) Lyme Antibody Screen <0.90 index [facility] Comment: Index Interpretation ----- < 0.90 Negative 0.90-1.09 Equivocal > 1.09 Positive As recommended by the Food and Drug Administration (FDA), all samples with positive or equivocal results in a Borrelia burgdorferi antibody screen will be tested using a blot method. Positive or equivocal screening test results should not be interpreted as truly positive until verified as such using a supplemental assay (e.g., B. burgdorferi blot). The screening test and/or blot for B. burgdorferi antibodies may be falsely negative in early stages of Lyme disease, including the period when erythema migrans is apparent. Blood Blood specimen / Unknown 04/29/2025 3:01 PM EDT 04/29/2025 3:03 PM EDT Narrative [facility] - 05/06/2025 1:09 PM EDT FASTING:YES FASTING: YES [employer] LAB BLOOD ORDERABLES Final Resu lt Performing Organization Address [facility] Co de Phone Number [employer] [address] [place] [phone] * Methylmalonic Acid, Serum (04/29/2025 3:01 PM EDT) Methylmalonic Acid 70 69 - 390 nmol/L [facility]/Lio RosastillAmy [facility] Comment: Serum methylmalonic acid (MMA) levels are used to diagnose and monitor several rare inborn errors of metabolism, including methylmalonic aciduria. The enzymatic conversion of MMA to succinic acid requires vitamin B12 (adenosyl-cobalamin) as a cofactor. Serum MMA levels are also used for assessing functional vitamin B12 deficiency. Vitamin B12 is essential for neurodevelopment, particularly early in . Undiagnosed maternal vitamin B12 deficiency may be associated with adverse / outcomes, such as neural tube defects and intrauterine growth restriction. [facility] utilized Multi-Modal Decomposition (MMD) analysis to establish first and second trimester- specific MMA reference intervals in , as given below: MMA, First trimester (<13 wks gestation): 58-167 nmol/L MMA, Second trimester (13-23 wks gestation): 63-241 nmol/L This test was developed and its analytical performance characteristics have been determined by [facility]. It has not been cleared or approved by the FDA. This assay has been validated pursuant to the CLIA regulations and is used for clinical purposes. Blood Blood specimen / Unknown 04/29/2025 3:01 PM EDT 04/29/2025 3:03 PM EDT Narrative [facility] - 05/06/2025 1:09 PM EDT FASTING:YES FASTING: YES Artie Allred DO LAB BLOOD ORDERABLES Final Resu lt [facility] [address] [place] [address] * Copper, Serum (04/29/2025 3:01 PM EDT) Copper 102 70 - 175 mcg/dL [facility] Comment: This test was developed and its analytical performance characteristics have been determined by [facility] [place]. It has not been cleared or approved by the U.S. Food and Drug Administration. This assay has been validated pursuant to the CLIA regulations and is used for clinical purposes. Blood Blood specimen / Unknown 04/29/2025 3:01 PM EDT 04/29/2025 3:03 PM EDT Narrative [facility] - 05/06/2025 1:09 PM EDT FASTING:YES FASTING: YES [facility] DO LAB BLOOD ORDERABLES Final Resu lt Performing Organization Address City/[facility]/ZIP Co de Phone Number [facility]/Jang [facility] [address] [place] * Vitamin B1, Whole Blood (04/29/2025 3:01 PM EDT) [facility] Vitamin B1, Whole Blood 118 78 - 185 nmol/L [facility]/Lio cruz [facility] Comment: Vitamin supplementation within 24 hours prior to blood draw may affect the accuracy of the results. This test was developed and its analytical performance characteristics have been determined by [facility] [place]. It has not been cleared or approved by the U.S. Food and Drug Administration. This assay has been validated pursuant to the CLIA regulations and is used for clinical purposes. Blood Blood specimen / Unknown 04/29/2025 3:01 PM EDT 04/29/2025 3:03 PM EDT Narrative [facility] - 05/06/2025 1:09 PM EDT FASTING:YES FASTING: YES [facility] LAB BLOOD ORDERABLES Final Resu lt Performing Organization Address [facility]/ZIP Co de Phone Number [facility]aine [facility] [address] [place] * Zinc Level (04/29/2025 3:01 PM EDT) [facility] Zinc 72 60 - 130 mcg/dL [facility]/Domenica choldominic [facility] Comment: This test was developed and its analytical performance characteristics have been determined by [facility] [place]. It has not been cleared or approved by the U.S. Food and Drug Administration. This assay has been validated pursuant to the CLIA regulations and is used for clinical purposes. Blood Blood specimen / Unknown 04/29/2025 3:01 PM EDT 04/29/2025 3:03 PM EDT Narrative [facility] - 05/06/2025 1:09 PM EDT FASTING:YES FASTING: YES [facility] LAB BLOOD ORDERABLES Final Resu lt Performing Organization Address [facility] Co de Phone Number [facility] [address] [place] * (ABNORMAL) Aldolase (04/29/2025 3:01 PM EDT) Pathologist [facility] Aldolase 16.5(H) <=8.1 U/L [facility] Blood Blood specimen / Unknown 04/29/2025 3:01 PM EDT 04/29/2025 3:03 PM EDT Narrative [facility] - 05/06/2025 1:09 PM EDT FASTING:YES FASTING: YES [facility] LAB BLOOD ORDERABLES Final Resu Performing Organization Address [facility] de Phone Number [facility] [address] [place] * Vitamin B2, Plasma (04/29/2025 3:01 PM EDT) Vitamin B2 25.4 6.2 - 39.0 nmol/L [facility] Comment: Vitamin supplementation within 24 hours prior to blood draw may affect the accuracy of results. This test was developed and its analytical performance characteristics have been determined by [facility] [place], [place]. It has not been cleared or approved by the FDA. This assay has been validated pursuant to the CLIA regulations and is used for clinical purposes. Blood Blood specimen / Unknown 04/29/2025 3:01 PM EDT 04/29/2025 3:03 PM EDT Narrative [facility] - 05/06/2025 1:09 PM EDT FASTING:YES FASTING: YES Artie Allred [facility] LAB BLOOD ORDERABLES Final Resu lt Performing Organization Address [facility] Co de Phone Number [facility] [address] [place] * [place] Level, Whole Blood (04/29/2025 3:01 PM EDT) [place], Blood <0.5 <=1.8 mcg/L [facility]/ chols [facility] Comment: This test was developed and its analytical performance characteristics have been determined by [facility] [place]. It has not been cleared or approved by the U.S. Food and Drug Administration. This assay has been validated pursuant to the CLIA regulations and is used for clinical purposes. Blood Blood specimen / Unknown 04/29/2025 3:01 PM EDT 04/29/2025 3:03 PM EDT Narrative [facility] - 05/06/2025 1:09 PM EDT FASTING:YES FASTING: YES Artie Allred [employer] LAB BLOOD ORDERABLES Final Resu lt Performing Organization Address [facility] de Phone Number [facility]/[facility] [address] [place] * Erythrocyte Sedimentation Rate (ESR) (04/29/2025 3:01 PM EDT) Erythrocyte Sediment Rate (ESR) 2 < OR = 20 mm/h [facility] Blood Blood specimen / Unknown 04/29/2025 3:01 PM EDT 04/29/2025 3:03 PM EDT Narrative [facility] - 05/06/2025 1:09 PM EDT FASTING:YES FASTING: YES Artie Allred DO LAB BLOOD ORDERABLES Final Resu lt Performing Organization Address [facility]/ZIP Co de Phone Number [employer] [address] [place] [phone] * Rheumatoid Factor (04/29/2025 3:01 PM EDT) [facility] Rheumatoid Factor <10 <14 IU/mL [facility] Blood Blood specimen / Unknown 04/29/2025 3:01 PM EDT 04/29/2025 3:03 PM EDT Narrative [facility] - 05/06/2025 1:09 PM EDT FASTING:YES FASTING: YES Artie Allred [employer] LAB BLOOD ORDERABLES Final Resu lt Performing Organization Address [facility] Co de Phone Number [employer] [address] [place] [phone] * Angiotensin Converting Enzyme, Serum (04/29/2025 3:01 PM EDT) [facility] Angiotensin-1 Converting Enzyme 37 9 - 67 U/L [facility] Blood Blood specimen / Unknown 04/29/2025 3:01 PM EDT 04/29/2025 3:03 PM EDT Narrative [facility] - 05/06/2025 1:09 PM EDT FASTING:YES FASTING: YES Artie Allred LAB BLOOD ORDERABLES Final Resu lt Performing Organization Address [facility] Co de Phone Number [facility]/Laine [facility] [address] [place] [address] * Immunofixation Electrophoresis, Serum (04/29/2025 3:01 PM EDT) [facility] Interpretation [facility] Comment:No monoclonal protei ns detected. Blood Blood specimen / Unknown 04/29/2025 3:01 PM EDT 04/29/2025 3:03 PM EDT Narrative [facility] - 05/06/2025 1:09 PM EDT FASTING:YES FASTING: YES [facility] LAB BLOOD ORDERABLES Final Resu lt Performing Organization Address [facility]/ZIP Co de Phone Number [employer] [address] [place] [phone] * C-Reactive Protein (04/29/2025 3:01 PM EDT) C-Reactive Protein <3.0 <8.0 mg/L [facility] Blood Blood specimen / Unknown 04/29/2025 3:01 PM EDT 04/29/2025 3:03 PM EDT Narrative [facility] - 05/06/2025 1:09 PM EDT FASTING:YES FASTING: YES Result [facility] LAB BLOOD ORDERABLES Final Resu lt Performing Organization Address [facility] Co de Phone Number [employer] [address] [place] [address] * Vitamin E (04/29/2025 3:01 PM EDT) Alpha-Tocopherol 14.1 5.7 - 19.9 mg/L [facility] Comment: Levels of alpha-tocopherol <5 mg/L are consistent with Vitamin E deficiency in adults. Beta-Gamma Tocopherol <1.0 <=4.3 mg/L [facility] Comment: Vitamin supplementation within 24 hours prior to blood draw may affect the accuracy of the results. This test was developed and its analytical performance characteristics have been determined by [facility] [place] It has not been cleared or approved by the U.S. Food and Drug Administration. This assay has been validated pursuant to the CLIA regulations and is used for clinical purposes. Blood Blood specimen / Unknown 04/29/2025 3:01 PM EDT 04/29/2025 3:03 PM EDT Narrative [facility] - 05/06/2025 1:09 PM EDT FASTING:YES FASTING: YES [email or web address] LAB BLOOD ORDERABLES Final Resu lt Performing Organization Address [facility]/ZIP Co de Phone Number [facility] [address] [place] * Vitamin B6 (04/29/2025 3:01 PM EDT) Pathologist [facility] Vitamin B6 4.0 2.1 - 21.7 ng/mL [facility] Comment: Vitamin supplementation within 24 hours prior to blood draw may affect the accuracy of the results. This test was developed and its analytical performance characteristics have been determined by [facility] [place]. It has not been cleared or approved by the U.S. Food and Drug Administration. This assay has been validated pursuant to the CLIA regulations and is used for clinical purposes. Blood Blood specimen / Unknown 04/29/2025 3:01 PM EDT 04/29/2025 3:03 PM EDT Narrative [facility] - 05/06/2025 1:09 PM EDT FASTING:YES FASTING: YES Artie [facility] LAB BLOOD ORDERABLES Final Resu lt Performing Organization Address [facility]/ZIP Co de Phone Number [facility] [address] [place], [place] * Lactate Dehydrogenase (LDH) (04/29/2025 3:01 PM EDT) [facility] Lactate Dehydrogenase (LDH) 241 120 - 250 U/L [employer] Blood Blood specimen / Unknown 04/29/2025 3:01 PM EDT 04/29/2025 3:03 PM EDT Narrative [facility] - 05/06/2025 1:09 PM EDT FASTING:YES FASTING: YES [email or web address] LAB BLOOD ORDERABLES Final Resu lt [employer] [address] [place] [phone] * Homocysteine, Total, Serum (04/29/2025 3:01 PM EDT) Pathologist [facility] Homocysteine 14.3 < or = 15.2 umol/L [employer] Comment: Homocysteine is increased by functional deficiency of folate or vitamin B12. Testing for methylmalonic acid differentiates between these deficiencies. Other causes of increased homocysteine include renal failure, folate antagonists such as methotrexate and phenytoin, and exposure to nitrous oxide. Rolly Bryant et al., [employer]. 1999;131(5):331-9. Blood Blood specimen / Unknown 04/29/2025 3:01 PM EDT 04/29/2025 3:03 PM EDT Narrative [employer] - 05/06/2025 1:09 PM EDT FASTING:YES FASTING: YES [email or web address] LAB BLOOD ORDERABLES Final Resu lt Performing Organization Address [facility] Co de Phone Number [employer] [address] [place] [phone] * Folate Level (04/29/2025 3:01 PM EDT) Pathologist [facility] Folate, Serum 12.3 ng/mL [employer] Comment: Reference Range Low: <3.4 Borderline: 3.4-5.4 Normal: >5.4 Blood Blood specimen / Unknown 04/29/2025 3:01 PM EDT 04/29/2025 3:03 PM EDT Narrative [facility] - 05/06/2025 1:09 PM EDT FASTING:YES FASTING: YES [email or web address] LAB BLOOD ORDERABLES Final Resu lt Performing Organization Address [facility]/ZIP Co de Phone Number [employer] [address] [place] [phone] * Ferritin (04/29/2025 3:01 PM EDT) Pathologist [facility] Ferritin 92 24 - 380 ng/mL [employer] Blood Blood specimen / Unknown 04/29/2025 3:01 PM EDT 04/29/2025 3:03 PM EDT Narrative [facility] - 05/06/2025 1:09 PM EDT FASTING:YES FASTING: YES [employer] Artie [facility] LAB BLOOD ORDERABLES Final Resu lt Performing Organization Address [facility]/ZIP Co de Phone Number [employer] [address] [place] [phone] * (ABNORMAL) Creatine Kinase (CK) (04/29/2025 3:01 PM EDT) Creatine Kinase (CK) 910(H) 22 - 308 U/L [employer] Blood Blood specimen / Unknown 04/29/2025 3:01 PM EDT 04/29/2025 3:03 PM EDT Narrative [facility] - 05/06/2025 1:09 PM EDT FASTING:YES FASTING: YES Artiehamzah Allred [employer] LAB BLOOD ORDERABLES Final Resu lt Performing Organization Address [facility] Co de Phone Number [employer] [address] [place] [phone] from Last 3 Months Insurance [facility] [employer] [place] [id number] Care Teams Wire Straightener Relationship Specialty Start Date End Date Katiuska Hawley MD [address] [place] [id number] PCP - General 01/24/25
--- OUTSIDE RECORDS SUMMARY | 2025-05-29 18:02 | XMS_ITS | Patient Health Record ---
Author Organization [facility] Address [address] [place] [address] Care Team Providers Care Websphere Architect Name Role Phone Thor Smith DO Primary Care Provider Unavaila Jimbo Harris Unavailable [phone] Reason For Referral No Information Medications Medication [...] Status Risk Notes Problem Pain in limb (60799192) Pain in unspecified foot (M79.673) Active confirmed Plan Of Treatment Pending Test Test Name Order Date X ray : Foot, right 3V 11/14/2015 Insurance Providers Payer Name Payer Address Payer Phone Subscriber Number Group Number Insured Name Patient Relationship to Insured Coverage Start Date Coverage End Date [employer] [address] [place], [place] [id number] Self - patient is the insured 6 Medical (General) History Medical History History ICD Code Alcoholic hepatitis Anxiety Colonic polyps Angina chronic cough Depression Hemorrhoids Hypertension Chicken pox Surgical History Surgery Date(Month/Year) tonsillectomy
--- OUTSIDE RECORDS SUMMARY | 2025-05-29 18:02 | XMS_ITS | Clinical Summary ---
Author Organization [facility] Address [address] [place] [address] Phone Care Team Providers Care Sole Cementer Name Role Phone Katiuska Hawley MD Primary Care Provider Allergies Active Allergy Reactions Criticality Noted Date Comments Egg Nausea And Vomiting Low 06/13/2020 Medications blood pressure monitor (Blood Pressure Kit) [...] instructions provided by the office 2 tablet 5 Active Active Problems Problem Noted Date Diagnosed Date S/P total right hip arthroplasty 07/17/2024 Gait instability 09/13/2023 Primary osteoarthritis of right hip 09/13/2023 Anemia 03/14/2023 Benign prostatic hyperplasia without lower urinary tract symptoms 03/14/2023 Esophagitis, [place] grade B 01/04/2019 Gastritis and duodenitis 01/04/2019 Vitamin D deficiency 05/16/2018 Hypertension 04/18/2018 Tubular adenoma 10/11/2017 Fatty liver 01/29/2016 Hemorrhoids 06/14/2013 Anxiety 10/23/2012 Depression 09/24/2010 Encounters Date Type Department Care Team Description 05/24/2025 1:35 PM EDT - 05/24/2025 11:59 PM EDT Hospital Encounter Radiology Department - [address] [phone] Weakness Discharge Disposition: Home or Self Care 05/24/2025 1:35 PM EDT - 05/24/2025 11:59 PM EDT Hospital Encounter Radiology Department - [address] [phone] Weakness Discharge Disposition: Home or Self Care 05/24/2025 1:34 PM EDT - 05/24/2025 11:59 PM EDT Hospital Encounter Radiology Department - [address] [phone] Weakness Discharge Disposition: Home or Self Care 05/08/2025 2:18 PM EDT Anesthesia Event [facility] Endoscopy [address] [place] [phone] Reid Dominguez MD 05/08/2025 1:17 PM EDT - 05/08/2025 11:59 PM EDT Hospital Encounter [facility] Endoscopy [address] [place] [phone] Veronica Shannon MD [place], Matthew G, CRNA Hx of colonic polyps Discharge Disposition: Home or Self Care 02/27/2025 11:30 AM EDT Office Visit Internal Medicine [facility] [address] [place] [phone] Katiuska Hawley MD Adult general medical examination [...] deficiency Fatty liver 01/29/2016 DX:Fatty liver Esophagitis, [place] grade B 01/04/2019 DX:Esophagitis, [place] grade B Duodenitis 01/04/2019 DX:Duodenitis Esophageal stenosis [...] care for your loved ones. For example, childcare attendant or elderly care for an older adult? [...] Sign Reading Time Taken Comments Blood Pressure 140/99 05/08/2025 3:09 PM EDT Pulse 81 05/08/2025 3:09 PM EDT Temperature 36.1 C (97 F) 05/08/2025 2:49 PM EDT Respiratory Rate 16 05/08/2025 3:09 PM EDT Oxygen Saturation 98% 05/08/2025 3:09 PM EDT Inhaled Oxygen Concentration - - Weight 78 kg (172 lb) 05/08/2025 1:31 PM EDT Height 190.5 cm (6' 3 ) 05/08/2025 1:31 PM EDT Body Mass Index 21.5 05/08/2025 1:31 PM EDT Plan of Treatment Upcoming Encounters Date Type Department Care Team (Late st Contact Info) Description 09/03/2025 1:00 PM EST Office Visit Internal Medicine - [place] [address] [place] [address] Katiuska Hawley MD [address] [place] [address] Health Maintenance Due Date Last Done Comments DTaP,Tdap,and Td Vaccines (1 - Tdap) 1981 Pneumococcal Vaccine: 50+ Years (1 of 1 - PCV) 2012 Zoster Vaccines (1 of 2) 2012 Colorectal [...] 75+ series) 2037 Depression Screening Completed 02/21/2025 Colorectal Cancer Screening: Colonoscopy Discontinued 05/08/2025 HIB Vaccines Aged Out No longer eligi [...] 20 months Aged Out No longer eligible based on patient's age to complete this topic Varicella Vaccines Aged Out No longer eligible based on patient's age to complete this topic Goals Goal Patient Goal Type Associated Problems Recent Progress Patient-Stated? Author Autogenera juventino Goal Care Plan Autogenerated Problem No [employer] Implanted Type Area Asphalt Paving Superintendent Device Identifier Shelf Expiration Date Model / Serial / Lot Solidback Acetabular Shell 60g - [id number] Implanted:Qty: 1 on 07/17/2024 by Vic Pierre MD at [facility] Hip Right: Hip [employer] [id number] 03/25/2026 700-04-60 G / / [id number] Hip Insert Acetab X3 10deg 36g - [id number] Implanted:Qty: 1 on 07/17/2024 by Vic Pierre MD at [facility] Hip Right: Hip [employer] [id number] 04/07/2028 623-10-36 G / / [id number] Hip Stem Acco Ii Sz8 127deg - [id number] Implanted:Qty: 1 on 07/17/2024 by Vic Pierre MD at [facility] Hip Right: Hip [employer] [id number] 05/10/2028 [id number] / / [id number] Hip Head Delta Radha 36mm 0 - [id number] Implanted:Qty: 1 on 07/17/2024 by Vic Pierre MD at [facility] Hip Right: Hip [employer] [id number] 01/27/2028 [id number] Procedures Procedure Name Priority Date/Time Associated Diagnosis Comments MR THORACIC SPINE WO CONTRAST Routine 05/24/2025 3:28 PM EDT Weakness MR BRAIN WO CONTRAST Routine 05/24/2025 3:18 PM EDT Weakness MR CERVICAL SPINE WO CONTRAST Routine 05/24/2025 2:47 PM EDT Weakness COLONOSCOPY Routine 05/08/2025 2:48 PM EDT Hx of colonic polyps PROSTATE SPECIFIC ANTIGEN SCREEN Routine 02/27/2025 12:08 [...] hypertension from Last 3 Months Results * MR Thoracic Spine wo Contrast [...] Signed Date: 05/27/2025 08:09 ET Workstation ID: [id number] Transcribed By: Self Edit Transcribed Date: 05/24/2025 [...] Vertebral body heights are maintained. Several subcentimeter [id number] signal lesions within the vertebral bodies likely [...] Signed Date: 05/27/2025 08:09 ET Workstation ID: [id number] Transcribed By: Self Edit Transcribed Date: 05/24/2025 19:15 ET Isidro Rich MD IMG MRI PROCEDURES Fin al Result * MR Brain wo Contrast (05/24/2025 3:18 [...] Signed Date: 05/27/2025 08:06 ET Workstation ID: [id number] Transcribed By: Self Edit Transcribed Date: 05/24/2025 [...] Signed Date: 05/27/2025 08:06 ET Workstation ID: [id number] Transcribed By: Self Edit Transcribed Date: 05/24/2025 18:31 ET Isidro Rich MD IMG MRI PROCEDURES Fin al Result * MR Cervical Spine wo Contrast (05/24/2025 [...] Signed Date: 05/27/2025 08:07 ET Workstation ID: [id number] Transcribed By: Self Edit Transcribed Date: 05/24/2025 19:01 ET Narrative 05/27/2025 8:07 AM EDT EXAM: Cervical spine MRI HISTORY: Weakness. Sensory changes. Difficulty with gait. COMPARISON: None CORRELATION: None TECHNIQUE: Exam performed on a 1.5 Alam high-field MRI scanner. Multiplanar imaging performed without [...] Signed Date: 05/27/2025 08:07 ET Workstation ID: [id number] Transcribed By: Self Edit Transcribed Date: 05/24/2025 19:01 ET Isidro Rich MD IMG MRI PROCEDURES Fin al Result * COLONOSCOPY Anesthesia - MAC; [facility] ENDOSCOPY (05/08/2025 2:48 PM EDT) Anatomical Region Laterality Modality Endoscopy 05/08/2025 2:25 PM EDT Impressions 05/08/2025 2:49 PM EDT - Internal hemorrhoids. - The examination was otherwise normal. - No specimens collected. Recommendation: - Discharge patient to home. - Repeat colonoscopy in 10 years for surveillance. Narrative 05/08/2025 2:49 PM EDT [facility] GI Patient Name: Norman Bailey Procedure Date: 05/08/2025 2:25 PM Date of : 1960 Age: 64 Gender: Male Note Status: Finalized Attending MD: Veronica Shannon MD, Procedure Date No Time: 05/08/2025 Procedure: Colonoscopy Indications: High risk colon cancer surveillance: Personal history of colonic polyps Providers: Veronica Shannon MD Referring MD: Veronica Shannon MD Medicines: Monitored Anesthesia Care Complications: No immediate complications. Estimated blood loss: None. Estimated Blood Loss: Estimated blood loss: none. Procedure: Pre-Anesthesia Assessment: - Prior to the procedure, a History and Physical was performed, and patient medications and allergies were reviewed. The patient is competent. The risks and benefits of the procedure and the sedation options and risks were discussed with the patient. All questions were answered and informed consent was obtained. Patient identification and proposed procedure were verified by the physician, the nurse, the air compressor mechanic and the fire protection equipment technician in the pre-procedure area in the endoscopy suite. Mental Status Examination: alert and oriented. Airway Examination: normal oropharyngeal airway and neck mobility. Respiratory Examination: clear to auscultation. CV Examination: normal. Prophylactic Antibiotics: The patient does not require prophylactic antibiotics. Prior Anticoagulants: The patient has taken no anticoagulant or antiplatelet agents. ASA Grade Assessment: II - A patient with mild systemic disease. After reviewing the risks and benefits, the patient was deemed in satisfactory condition to undergo the procedure. The anesthesia plan was to use monitored anesthesia care (MAC). Immediately prior to administration of medications, the patient was re-assessed for adequacy to receive sedatives. The heart rate, respiratory rate, oxygen saturations, blood pressure, adequacy of pulmonary ventilation, and response to care were monitored throughout the procedure. The physical status of the patient was re-assessed after the procedure. After I obtained informed consent, the scope was passed under direct vision. Throughout the procedure, the patient's blood pressure, pulse, and oxygen saturations were monitored continuously. The Colonoscope was introduced through the anus and advanced to the cecum, identified by appendiceal orifice and ileocecal valve. The colonoscopy was performed without difficulty. The patient tolerated the procedure well. The quality of the bowel preparation was good. Findings: The perianal and digital rectal examinations were normal. Internal hemorrhoids were found during retroflexion. The hemorrhoids were Grade I (internal hemorrhoids that do not prolapse). The exam was otherwise without abnormality. Procedure Code(s): --- Professional --- G0105, Colorectal cancer screening; colonoscopy on individual at high risk Diagnosis Code(s): --- Professional --- Z86.010, Personal history of colonic polyps CPT copyright 2020 [employer]. All rights reserved. The codes documented in this report are preliminary and upon it business process architect review may be revised to meet current compliance requirements. Veronica Shannon MD 05/08/2025 2:49:26 PM This report has been signed electronically.Veronica Shannon MD Number of Addenda: 0 Note Initiated On: 05/08/2025 2:25 PM Scope Withdrawal Time: 0 hours 14 minutes 32 seconds Scope In: 2:30:28 PM Scope Out: 2:47:13 PM Endoscopy Department at [facility] - [address] [place] [phone] Procedure Note Veronica Shannon MD - 05/08/2025 [facility] GI Patient Name: Norman Bailey Procedure Date: 05/08/2025 2:25 PM Date of : 1960 Age: 64 Gender: Male Note Status: Finalized Attending MD: Veronica Shannon MD, Procedure Date No Time: 05/08/2025 Procedure: Colonoscopy Indications: High risk colon cancer surveillance: Personalhistory of colonic polyps Providers: Veronica Shannon MD Referring MD: Veronica Shannon MD Medicines: Monitored Anesthesia Care Complications: No immediate complications. Estimated blood loss:None. Estimated Blood Loss: Estimated blood loss: none. Procedure: Pre-Anesthesia Assessment: - Prior to the procedure, a History and Physicalwas performed, and patient medications and allergieswere reviewed. The patient is competent. The risks and benefits of the procedure and the sedation optionsand risks were discussed with the patient. Allquestions were answered and informed consent was obtained. Patient identification and proposed procedure were verified by the physician, the nurse, theanesthetist and the fire protection equipment technician in the pre-procedure area in the endoscopy suite. Mental Status Examination: alertand oriented. Airway Examination: normal oropharyngeal airway and neck mobility. Respiratory Examination: clear to auscultation. CV Examination: normal. Prophylactic Antibiotics: The patient does notrequire prophylactic antibiotics. Prior Anticoagulants: The patient has taken no anticoagulant or antiplatelet agents. ASA Grade Assessment: II - A patient withmild systemic disease. After reviewing the risks and benefits, the patient was deemed in satisfactory condition to undergo the procedure. The anesthesia plan was to use monitored anesthesia care (MAC). Immediately prior to administration of medications, the patient was re-assessed for adequacy to receive sedatives. The heart rate, respiratory rate, oxygen saturations, blood pressure, adequacy of pulmonary ventilation, and response to care were monitored throughout the procedure. The physical status ofthe patient was re-assessed after the procedure. After I obtained informed consent, the scope was passed under direct vision. Throughout theprocedure, the patient's blood pressure, pulse, and oxygen saturations were monitored continuously. The Colonoscope was introduced through the anus and advanced to the cecum, identified by appendiceal orifice and ileocecal valve. The colonoscopy was performed without difficulty. The patient tolerated the procedure well. The quality of the bowel preparation was good. Findings: The perianal and digital rectal examinations were normal. Internal hemorrhoids were found duringretroflexion. The hemorrhoids were Grade I (internal hemorrhoids that do not prolapse). The exam was otherwise without abnormality. Procedure Code(s): --- Professional --- G0105, Colorectal cancer screening; colonoscopy on individual at high risk Diagnosis Code(s): --- Professional --- Z86.010, Personal history of colonic polyps CPT copyright 2020 [employer]. All rights reserved. The codes documented in this report are preliminary and upon it business process architect reviewmay be revised to meet current compliance requirements. Veronica Shannon MD 05/08/2025 2:49:26 PM This report has been signed electronically.Veronica Shannon MD Number of Addenda: 0 Note Initiated On: 05/08/2025 2:25 PM Scope Withdrawal Time: 0 hours 14 minutes 32 seconds Scope In: 2:30:28 PM Scope Out: 2:47:13 PM Endoscopy Department at [facility] - [address] [place] [phone] IMPRESSION: - Internal hemorrhoids. - The examination was otherwise normal. - No specimens collected. Recommendation: - Discharge patient to home. - Repeat colonoscopy in 10 years forsurveillance. us Veroncia Shannon MD GI~PROCEDURE ORDERABLES Fin al Result * Prostate specific antigen screen (02/27/2025 12:08 PM EDT) PSA 1.00 0.00 - 4.00 ng/mL LAB CHEMISTRY METHOD 02/27/2025 7:25 PM EDT [facility] Blood Venous blood specimen / Unknown Venipuncture / Unknown 02/27/2025 12:08 PM EDT 02/27/2025 12:08 PM EDT Narrative [facility] - 02/27/2025 7:25 PM EDT The Siemens Advia Centaur Chemiluminescent Immunoassay is used. Results obtained with different assay methods or kits cannot be used interchangeably. Results cannot be interpreted as absolute evidence of the presence or absence of malignant disease. us Katiuska Hawley MD LAB BLOOD ORDERABLES Final Res ult [facility] [address] [place] [address], [place] [phone] * Lipid panel with reflex to direct LDL (02/27/2025 12:08 PM EDT) Cholesterol 188 0 - 200 mg/dL LAB CHEMISTRY METHOD 02/27/2025 7:33 PM EDT [facility] Triglycerides 63 0 - 150 mg/dL LAB CHEMISTRY METHOD 02/27/2025 7:33 PM EDT [facility] HDL 87 >=40 mg/dL LAB CHEMISTRY METHOD 02/27/2025 7:33 PM EDT [facility] LDL Calculated 88 0 - 100 mg/dL LAB CHEMISTRY METHOD 02/27/2025 7:33 PM EDT [facility] VLDL Cholesterol Napoleon 12.6 mg/dL LAB CHEMISTRY METHOD 02/27/2025 7:33 PM EDT [facility] Non HDL Chol. (LDL+VLDL) 101 <145 mg/dL LAB CHEMISTRY METHOD 02/27/2025 7:33 PM EDT [facility] Chol/HDL Ratio 2.2 0.0 - 4.4 LAB CHEMISTRY METHOD 02/27/2025 7:33 PM EDT [facility] Blood Venous blood specimen / Unknown Venipuncture / Unknown 02/27/2025 12:08 PM EDT 02/27/2025 12:08 PM EDT Katiuska Hawley MD LAB BLOOD ORDERABLES Final Res ult Performing Organization Address [facility]/ZIP Co de Phone Number [facility] [address] [place] [address], [place] [phone] * Vitamin D 25 hydroxy (02/27/2025 12:08 PM EDT) Vit D, 25-Hydroxy 31.4 30.0 - 80.0 ng/mL LAB CHEMISTRY METHOD 02/27/2025 7:25 PM EDT [facility] Blood Venous blood specimen / Unknown Venipuncture / Unknown 02/27/2025 12:08 PM EDT 02/27/2025 12:08 PM EDT us Katiuska Hawley MD LAB BLOOD ORDERABLES Final Res ult Performing Organization Address City/[facility]/ZIP Co de Phone Number [facility] [address] [place] [address], [place] [phone] * (ABNORMAL) Complete blood count (02/27/2025 12:08 PM EDT) WBC 4.8 4.8 - 10.8 K/mcL LAB HEMETOLOGY METHOD 02/27/2025 2:20 PM EDT [facility] RBC 4.90 4.50 - 5.50 M/mcL LAB HEMETOLOGY METHOD 02/27/2025 2:20 PM EDT [facility] Hemoglobin 14.3 13.5 - 17.5 g/dL LAB HEMETOLOGY METHOD 02/27/2025 2:20 PM EDT [facility] Hematocrit 42.9 42.0 - 54.0 % LAB HEMETOLOGY METHOD 02/27/2025 2:20 PM EDT [facility] MCV 87.6 79.0 - 98.0 FL LAB HEMETOLOGY METHOD 02/27/2025 2:20 PM EDT [facility] MCH 29.2 27.0 - 32.0 pcg LAB HEMETOLOGY METHOD 02/27/2025 2:20 PM EDT [facility] MCHC 33.3 32.0 - 37.0 g/dL LAB HEMETOLOGY METHOD 02/27/2025 2:20 PM EDT [facility] RDW 14.6 11.0 - 15.0 % LAB HEMETOLOGY METHOD 02/27/2025 2:20 PM EDT [facility] Platelets 185 130 - 400 K/mcL LAB HEMETOLOGY METHOD 02/27/2025 2:20 PM EDT [facility] MPV 12.1(H) 7.0 - 11.0 FL LAB HEMETOLOGY METHOD 02/27/2025 2:20 PM EDT [facility] NRBC 0.0 <1.0 % LAB HEMETOLOGY METHOD 02/27/2025 2:20 PM EDT [facility] NRBC Absolute 0.00 <0.10 K/mcL LAB HEMETOLOGY METHOD 02/27/2025 2:20 PM EDT [facility] Blood Venous blood specimen / Unknown Venipuncture / Unknown 02/27/2025 12:08 PM EDT 02/27/2025 12:08 PM EDT us Katiuska Hawley MD LAB BLOOD ORDERABLES Final Res ult [facility] [address] [place] [address], * Thyroid stimulating hormone (02/27/2025 12:08 PM EDT) TSH 1.03 0.40 - 4.00 mcIU/mL LAB CHEMISTRY METHOD 02/27/2025 7:54 PM EDT [facility] Blood Venous blood specimen / Unknown Venipuncture / Unknown 02/27/2025 12:08 PM EDT 02/27/2025 12:08 PM EDT Katiuska Hawley MD LAB BLOOD ORDERABLES Final Res ult [facility] [address] [place] [address], [place] [phone] * Magnesium (02/27/2025 12:08 PM EDT) Pathologist [facility] Magnesium 2.0 1.9 - 2.6 mg/dL LAB CHEMISTRY METHOD 02/27/2025 7:05 PM EDT [facility] Blood Venous blood specimen / Unknown Venipuncture / Unknown 02/27/2025 12:08 PM EDT 02/27/2025 12:08 PM EDT Katiuska Hawley MD LAB BLOOD ORDERABLES Final Res ult Performing Organization Address City/[facility]/ZIP Co de Phone Number [facility] [address] [place] [address], [place] [phone] * Hemoglobin A1c (02/27/2025 12:08 PM EDT) Hemoglobin A1C 5.7 <6.5 % LAB CHEMISTRY METHOD 02/27/2025 5:13 PM EDT [facility] Mean Bld Glu Estim. 117 mg/dL LAB CHEMISTRY METHOD 02/27/2025 5:13 PM EDT [facility] Blood Venous blood specimen / Unknown Venipuncture / Unknown 02/27/2025 12:08 PM EDT 02/27/2025 12:08 PM EDT Katiuska Hawley MD LAB BLOOD ORDERABLES Final Res ult Performing Organization Address City/[facility]/ZIP Co de Phone Number [facility] [address] [place] [address], [place] [phone] * Vitamin B12 (02/27/2025 12:08 PM EDT) Pathologist [facility] Vitamin B-12 630 250 - 900 pcg/mL LAB CHEMISTRY METHOD 02/27/2025 7:28 PM EDT [facility] Blood Venous blood specimen / Unknown Venipuncture / Unknown 02/27/2025 12:08 PM EDT 02/27/2025 12:08 PM EDT Katiuska Hawley MD LAB BLOOD ORDERABLES Final Res ult Performing Organization Address [facility]/ZIP Co de Phone Number [facility] [address] [place] [address], [place] [phone] * (ABNORMAL) Comprehensive metabolic panel (02/27/2025 12:08 PM EDT) [facility] Sodium 140 133 - 145 mmol/L LAB CHEMISTRY METHOD 02/27/2025 7:28 PM [facility] Potassium 3.6 3.5 - 5.5 mmol/L LAB CHEMISTRY METHOD 02/27/2025 7:28 PM [facility] Chloride 106 96 - 110 mmol/L LAB CHEMISTRY METHOD 02/27/2025 7:28 PM T [facility] CO2 27 21 - 32 mmol/L [facility]STR[facility] Anion Gap 7 3 - 11 LAB CHEMISTRY METHOD 02/27/2025 7:28 PM [facility] Glucose 88 70 - 100 mg/dL LAB CHEMISTRY METHOD [facility] BUN 17 5 - 25 mg/dL LAB CHEMISTRY METHOD 02/27/2025 7:28 PM [facility] Creatinine 0.70 0.70 - 1.30 mg/dL LAB CHEMISTRY METHOD 02/27/2025 7:28 PM [facility] eGFR 104 >=60 mL/min/1. 73m2 LAB CHEMISTRY METHOD 02/27/2025 7:28 PM [facility] Comment:Calculation based on the Chronic Kidney Disease Epidemiology Collaboration (CKD-EPI) equation refit without adjustment for race. BUN/Creatinine Ratio 24.3 LAB CHEMISTRY METHOD 02/27/2025 7:28 PM [facility] Calcium 9.1 8.5 - 10.5 mg/dL LAB CHEMISTRY METHOD 02/27/2025 7:28 PM [facility] AST (SGOT) 52(H) 10 - 42 unit/L LAB CHEMISTRY METHOD 02/27/2025 7:28 PM [facility] ALT (SGPT) 57 10 - 60 unit/L LAB CHEMISTRY METHOD 02/27/2025 7:28 PM [facility] Alkaline Phosphatase 80 42 - 121 unit/L LAB CHEMISTRY METHOD 02/27/2025 7:28 PM [facility] Total Protein 7.7 6.0 - 8.0 g/dL LAB CHEMISTRY METHOD 02/27/2025 7:28 PM [facility] Albumin 4.0 3.2 - 5.0 g/dL LAB CHEMISTRY METHOD 02/27/2025 7:28 PM [facility] Total Bilirubin 0.6 0.0 - 1.4 mg/dL LAB CHEMISTRY METHOD 02/27/2025 7:28 PM [facility] Blood Venous blood specimen / Unknown Venipuncture / Unknown 02/27/2025 12:08 PM EDT 02/27/2025 12:08 PM EDT us Katiuska Hawley MD LAB BLOOD ORDERABLES Final Res ult [facility]ILY [facility] [address] [place] [address], from Last 3 Months Additional Health Concerns Active Problems Noted Date Diagnosed Date Autogenerated Problem 05/14/2025 Insurance [employer] Advance Directives * Full [...] currently active code status orders. Care Teams Sole Cementer Relationship Specialty Start Date End Date Katiuska Hawley MD [address] [facility] [address] [place] [phone] PCP - General Internal Medicine 06/27/18
== END 2025-05-29 14:17 | disposition home or self-care (01) ==
LOC: HO.HMGAL 14:17
PROVIDERS: PCP Internal Medicine; Visit Provider Registered Nurse Emergency
DX: J30.89 Other allergic rhinitis (principal)
CPT/HCPCS: 95117; 95165

== ENCOUNTER 2025-06-24 09:59 | Outpatient (AMB) | payer OTHER, SELFPAY ==
--- OUTSIDE RECORDS SUMMARY | 2025-06-24 11:30 | XMS_ITS | Clinical Summary ---
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 Knitting Machine Operator Name Role Phone Katiuska Hawley MD Primary Care Provider [phone] Allergies Active Allergy Reactions Criticality Noted Date [...] without lower urinary tract symptoms 03/14/2023 Esophagitis, [place] grade B 01/04/2019 Gastritis and duodenitis 01/04/2019 Vitamin D deficiency 05/16/2018 Hypertension 04/18/2018 Tubular adenoma 10/11/2017 Fatty liver 01/29/2016 Hemorrhoids 06/14/2013 Anxiety 10/23/2012 Depression 09/24/2010 Encounters Date Type Department Care Team Description 04/22/2025 11:00 AM EDT Office Visit [facility] Neurology [address] [phone] Bortan, Niurka, MD Chalino, Artie, DO Weakness (Primary Dx); Decreased sense of vibration; Hyperreflexia; Gait disturbance 04/22/2025 Travel from Last 3 Months Family History Medical [...] 04/22/2025 10:49 AM EDT Plan of Treatment Health Maintenance Due Date Last Done Comments Hepatitis C Virus Screening 1962 DTaP/Tdap/Td Vaccines (1 - Tdap) 1981 Colonoscopy 11/01/2007 Pneumococcal Vaccines 50+ (1 of 1 - PCV) 2012 RSV Vaccine 50 years and old er and Patients (1 - Risk 50-74 years 1-dose series) 2012 Zoster (Shingles) Vaccine (1 of 2) 2012 Influenza Vaccine 03/15/2025 COVID-19 Vaccine (1 - 2023-2 5 season) 2025 HIV Screening [...] Weakness VITAMIN B1, WHOLE BLOOD Routine 04/29/20 3:01 PM EDT Weakness VITAMIN E Routine [...] with Differential (05/13/2025 10:02 AM EDT) Pathologist [facility] White Blood Cell Count 4.3 3.8 - 10.8 Thousand/ uL [facility] Red Blood Cell Count 4.49 4.20 - 5.80 Million/u L [facility] Hemoglobin 13.0(L) 13.2 - 17.1 g/dL [facility] Hematocrit 40.3 38.5 - 50.0 % [facility] MCV 89.8 80.0 - 100.0 fL [facility] MCH 29.0 27.0 - 33.0 pg [facility] MCHC 32.3 32.0 - 36.0 g/dL [facility] Comment: For adults, a slight decrease in the calculated MCHC value (in the range of 30 to 32 g/dL) is most likely not clinically significant; however, it should be interpreted with caution in correlation with other red cell parameters and the patient's clinical condition. RDW 13.6 11.0 - 15.0 % [facility] Platelet Count 201 140 - 400 Thousand/ uL [facility] MPV 11.7 7.5 - 12.5 fL [facility] Abs Neutrophils Auto 1,978 1,500 - 7,800 cells/uL [facility] Abs Lymphocytes Auto 1,617 850 - 3,900 cells/uL [facility] Abs Monocytes Auto 473 200 - 950 cells/uL [facility] Abs Eosinophils Auto 172 15 - 500 cells/uL [facility] Abs Basophils Auto 60 0 - 200 cells/uL [facility] Neutrophils Auto 46 % Que [employer] Lymphocytes Auto 37.6 % [facility] [employer] [facility] Monocytes Auto 11.0 % [facility] Eosinophils Auto 4.0 % [facility] [employer] Basophils Auto 1.4 % [facility] Blood Blood specimen / Unknown 05/13/2025 10:02 AM EDT 05/13/2025 10:03 AM EDT Narrative [facility] - 05/14/2025 7:28 AM EDT FASTING:YES FASTING: YES us Artie Allred DO LAB BLOOD ORDERABLES Final Resu lt [facility] [address] [place] [address] * Comprehensive Metabolic Panel (05/13/2025 10:02 AM EDT) Pathologist [facility] Glucose 97 65 - 99 mg/dL [facility] Comment: Fasting reference interval Blood Urea Nitrogen (BUN) 16 7 - 25 mg/dL [facility] Creatinine 0.75 0.70 - 1.35 mg/dL [facility] Creatinine w/ eGFR 102 > OR = 60 mL/min/1. 73m2 [facility] BUN/Creatinine Ratio SEE NOTE: 6 - 22 (calc) [facility] Comment: Not Reported: BUN and Creatinine are within reference range. Sodium 144 135 - 146 mmol/L [facility] Potassium 4.4 3.5 - 5.3 mmol/L [facility] Chloride 105 98 - 110 mmol/L [facility] CO2 31 20 - 32 mmol/L [facility] Calcium 9.0 8.6 - 10.3 mg/dL [facility] Protein, Total 6.8 6.1 - 8.1 g/dL [facility] Albumin 4.0 3.6 - 5.1 g/dL [facility] Globulin 2.8 1.9 - 3.7 g/dL (calc) [facility] Albumin/Globuli n Ratio 1.4 1.0 - 2.5 (calc) [facility] Bilirubin, Total 0.4 0.2 - 1.2 mg/dL [facility] Alkaline Phosphatase 59 35 - 144 U/L [facility] Aspartate Aminotrans (AST) 28 10 - 35 U/L [facility] Alanine Aminotrans (ALT) 27 9 - 46 U/L [facility] Blood Blood specimen / Unknown 05/13/2025 10:02 AM EDT 05/13/2025 10:03 AM EDT Narrative [facility] - 05/14/2025 7:28 AM EDT FASTING:YES FASTING: YES us Artie Allred DO LAB BLOOD ORDERABLES Final Resu lt [facility] [address] [place] [phone] * Iron and Total Iron Binding Capacity (04/29/2025 3:01 PM EDT) Pathologist [facility] Iron 104 50 - 180 mcg/dL [facility] Total Iron Binding Capacity 280 250 - 425 mcg/dL (calc) [facility] Iron Saturation 37 20 - 48 % (calc) [facility] Blood Blood specimen / Unknown 04/29/2025 3:01 PM EDT 04/29/2025 3:03 PM EDT Narrative [employer] - 05/06/2025 1:09 PM EDT FASTING:YES FASTING: YES [employer] LAB BLOOD ORDERABLES Final Resu lt [facility] [address] [place] [phone] * KHADRA IFA reflex Titer/Pattern/[place]scoda (04/29/2025 3:01 PM EDT) [facility] KHADRA Screen, IFA NEGATIVE NEGATIVE [employer] Comment: KHADRA IFA is a first line [...] AC-0: Negative International Consensus on KHADRA Patterns (https://doi.org/10.1515/souo-9178-8468) For additional information, please refer to http://education.Metropolist.Yazino/faq/RSZ300 (This link is being provided for informational/ educational purposes only.) Blood Blood specimen / Unknown 04/29/2025 3:01 PM EDT 04/29/2025 3:03 PM EDT Narrative [employer] - 05/06/2025 1:09 PM EDT FASTING:YES FASTING: YES [employer] BLOOD ORDERABLES Final Resu lt Performing Organization Address [facility]/ZIP Co de Phone Number [facility] [address] [place] [address] * Double Strand DNA (dsDNA) Antibody Screen, Crithidia, Reflex Titer (04/29/2025 3:01 PM EDT) DNA (ds) Antibody Screen Negative Negative [facility]/Lio cruz [facility] Blood Blood specimen / Unknown 04/29/2025 3:01 PM EDT 04/29/2025 3:03 PM EDT Narrative [facility] - 05/06/2025 1:09 PM EDT FASTING:YES FASTING: YES [employer] BLOOD ORDERABLES Final Resu lt Performing Organization Address [facility]/ZIP Co de Phone Number [facility]/[place] [address] [facility] [place] [address] * Syphilis JOSE reflex RPR Titer & TPPA (04/29/2025 3:01 PM EDT) Syphilis JOSE NEGATIVE NEGATIVE [facility] [employer] Comment: No antibodies to T. pallidum (the [...] 05/06/2025 1:09 PM EDT FASTING:YES FASTING: YES [facility] LAB BLOOD ORDERABLES Final Resu lt Performing Organization Address [facility]/ZIP Co de Phone Number [facility] [address] [place] [address] * HIV 1/2 Ag/Ab CMIA Reflex to Confirmation (04/29/2025 3:01 PM EDT) Pathologist [facility] HIV Final Interpretation HIV NEGATIVE [facility] Comment: HIV-1 antigen and HIV-1/HIV-2 antibodies were not detected. There is no laboratory evidence of HIV infection. HIV Ag/Ab, 4th Gen NON-REACTIV E NON-REAC TIVE [facility] Blood Blood specimen / Unknown 04/29/2025 3:01 PM EDT 04/29/2025 3:03 PM EDT Narrative [facility] - 05/06/2025 1:09 PM EDT FASTING:YES FASTING: YES [facility] LAB BLOOD ORDERABLES Final Resu lt Performing Organization Address [facility] Co de Phone Number [facility] [address] [place] [phone] * Tissue Transglutaminase IgA and IgG Ab Panel (04/29/2025 3:01 PM EDT) Pathologist [facility] Tissue Transglutaminase IgG Ab <1.0 U/mL [facility] Comment: Value Interpretation ----- <15.0 Antibody not detected > or = 15.0 Antibody detected Tissue Transglutaminase IgA Ab <1.0 U/mL [facility] Comment: Value Interpretation ----- <15.0 Antibody not detected > or = 15.0 Antibody detected Blood Blood specimen / Unknown 04/29/2025 3:01 PM EDT 04/29/2025 3:03 PM EDT Narrative [facility] - 05/06/2025 1:09 PM EDT FASTING:YES FASTING: YES [employer] LAB BLOOD ORDERABLES Final Resu lt Performing Organization Address [facility] Co de Phone Number [facility] [address] [place] [address] * Lyme Ab IgG/IgM Screen Reflex Western Blot (04/29/2025 3:01 PM EDT) [facility] Lyme Antibody Screen <0.90 index [facility]lio[facility]Zlio Comment: Index Interpretation ----- < 0.90 Negative [...] 3:01 PM EDT 04/29/2025 3:03 PM EDT [facility] - 05/06/2025 1:09 PM EDT FASTING:YES FASTING: YES Artie Allred DO LAB BLOOD ORDERABLES Final Resu lt [employer] [address] [place] [phone] * Methylmalonic Acid, Serum (04/29/2025 3:01 PM EDT) [facility] Methylmalonic Acid 70 69 - 390 nmol/L [facility] Comment: Serum methylmalonic acid (MMA) levels are [...] neural tube defects and intrauterine growth restriction. [facility] utilized Multi-Modal Decomposition (MMD) analysis to establish first and second trimester- specific MMA reference intervals in , as given below: MMA, First trimester (<13 wks gestation): 58-167 nmol/L MMA, Second trimester (13-23 wks gestation): 63-241 nmol/L This test was developed and its analytical performance characteristics have been determined by [facility]. It has not been cleared or approved by the FDA. This assay has been validated pursuant to the CLIA regulations and is used for clinical purposes. Blood Blood specimen / Unknown 04/29/2025 3:01 PM EDT 04/29/2025 3:03 PM EDT Narrative [facility] - 05/06/2025 1:09 PM EDT FASTING:YES FASTING: YES Artie Allred DO LAB BLOOD ORDERABLES Final Resu lt Performing Organization Address City/[facility]/ZIP Co de Phone Number ELIAS [facility]/Jang [facility] [address] [facility] [facility] [address] [place], [place] * Copper, Serum (04/29/2025 3:01 PM EDT) Copper 102 70 - 175 mcg/dL [facility]/ chols [facility] Comment: This test was developed and its analytical performance characteristics have been determined by [facility] [place]. It has not been cleared or [...] ORDERABLES Final Resu lt Performing Organization Address City/[facility]/ZIP Co de Phone Number ELIAS Bergeron [employer]/Jang [facility] [address] [facility] [address] [place] * Vitamin B1, Whole Blood (04/29/2025 3:01 PM EDT) Vitamin B1, Whole Blood 118 78 - 185 nmol/L [facility]/N anthony [facility] Comment: Vitamin supplementation within 24 hours prior to blood draw may affect the accuracy of the results. This test was developed and its analytical performance characteristics have been determined by [facility] [place]. It has not been cleared or approved by the U.S. Food and Drug Administration. This assay has been validated pursuant to the CLIA regulations and is used for clinical purposes. Blood Blood specimen / Unknown 04/29/2025 3:01 PM EDT 04/29/2025 3:03 PM EDT Narrative [facility] - 05/06/2025 1:09 PM EDT FASTING:YES FASTING: YES [facility] LAB BLOOD ORDERABLES Final Resu Performing Organization Address [facility] de Phone Number ELIAS [facility] [address] [facility] [place], [place] * Zinc Level (04/29/2025 3:01 PM EDT) Pathologist [facility] Zinc 72 60 - 130 mcg/dL [facility] Comment: This test was developed and its analytical performance characteristics have been determined by [facility] [place]. It has not been cleared or approved by the U.S. Food and Drug Administration. This assay has been validated pursuant to the CLIA regulations and is used for clinical purposes. Blood Blood specimen / Unknown 04/29/2025 3:01 PM EDT 04/29/2025 3:03 PM EDT Narrative [facility] - 05/06/2025 1:09 PM EDT FASTING:YES FASTING: YES [facility] LAB BLOOD ORDERABLES Final Resu lt Performing Organization Address [facility] de Phone Number ELIAS [facility] [address] [facility] [place], [place] * (ABNORMAL) Aldolase (04/29/2025 3:01 PM EDT) Pathologist [facility] Aldolase 16.5(H) <=8.1 U/L [facility]/Ciaran rosales [facility] Blood Blood specimen / Unknown 04/29/2025 3:01 PM EDT 04/29/2025 3:03 PM EDT Narrative [facility] - 05/06/2025 1:09 PM EDT FASTING:YES FASTING: YES [facility] LAB BLOOD ORDERABLES Final Resu lt Performing Organization Address [facility] Co de Phone Number [facility] [address] [facility] [place], [place] * Vitamin B2, Plasma (04/29/2025 3:01 PM EDT) Pathologist [facility] Vitamin B2 25.4 6.2 - 39.0 nmol/L [facility]/N anthony [facility] Comment: Vitamin supplementation within 24 hours prior to blood draw may affect the accuracy of results. This test was developed and its analytical performance characteristics have been determined by [employer] [place] It has not been cleared or approved by the FDA. This assay has been validated pursuant to the CLIA regulations and is used for clinical purposes. Blood Blood specimen / Unknown 04/29/2025 3:01 PM EDT 04/29/2025 3:03 PM EDT Narrative [facility] - 05/06/2025 1:09 PM EDT FASTING:YES FASTING: YES Artie Allred LAB BLOOD ORDERABLES Final Resu lt Performing Organization Address [facility] de Phone Number [facility] [address] [facility] [place], [place] * [place] Level, Whole Blood (04/29/2025 3:01 PM EDT) [facility] [place], Blood <0.5 <=1.8 mcg/L [facility]/Ni chols [facility] Comment: This test was developed and its analytical performance characteristics have been determined by [employer] [place], [place]. It has not been cleared or approved by the U.S. Food and Drug Administration. This assay has been validated pursuant to the CLIA regulations and is used for clinical purposes. Blood Blood specimen / Unknown 04/29/2025 3:01 PM EDT 04/29/2025 3:03 PM EDT Narrative [facility] - 05/06/2025 1:09 PM EDT FASTING:YES FASTING: YES [facility] LAB BLOOD ORDERABLES Final Resu lt Performing Organization Address City/[facility]/ZIP Co de Phone Number [facility]/[place] [address] [facility] [address] * Erythrocyte Sedimentation Rate (ESR) (04/29/2025 3:01 PM EDT) Erythrocyte Sediment Rate (ESR) 2 < OR = 20 mm/h [facility] Blood Blood specimen / Unknown 04/29/2025 3:01 PM EDT 04/29/2025 3:03 PM EDT Narrative [facility] - 05/06/2025 1:09 PM EDT FASTING:YES FASTING: YES [facility] LAB BLOOD ORDERABLES Final Resu lt Performing Organization Address [facility] Co de Phone Number [facility] [address] [place] [phone] * Rheumatoid Factor (04/29/2025 3:01 PM EDT) Rheumatoid Factor <10 <14 IU/mL [facility] Blood Blood specimen / Unknown 04/29/2025 3:01 PM EDT 04/29/2025 3:03 PM EDT Narrative [facility] - 05/06/2025 1:09 PM EDT FASTING:YES FASTING: YES [facility] LAB BLOOD ORDERABLES Final Resu lt Performing Organization Address [facility]/ZIP Co de Phone Number [facility] [address] [place] [phone] * Angiotensin Converting Enzyme, Serum (04/29/2025 3:01 PM EDT) Pathologist [facility] Angiotensin-1 Converting Enzyme 37 9 - 67 U/L [facility]/Domenica stone [facility] Blood Blood specimen / Unknown 04/29/2025 3:01 PM EDT 04/29/2025 3:03 PM EDT Narrative [facility] - 05/06/2025 1:09 PM EDT FASTING:YES FASTING: YES [facility] LAB BLOOD ORDERABLES Final Resu lt [employer]/Laine [facility] [address] [facility] [place] [address] * Immunofixation Electrophoresis, Serum (04/29/2025 3:01 PM EDT) Pathologist [facility] Interpretation [facility] Comment:No monoclonal protei ns detected. Blood Blood specimen / Unknown 04/29/2025 3:01 PM EDT 04/29/2025 3:03 PM EDT Narrative [facility] - 05/06/2025 1:09 PM EDT FASTING:YES FASTING: YES [facility] LAB BLOOD ORDERABLES Final Resu lt [facility] [employer] [address] [phone] * C-Reactive Protein (04/29/2025 3:01 PM EDT) Pathologist [facility] C-Reactive Protein <3.0 <8.0 mg/L [facility] Blood Blood specimen / Unknown 04/29/2025 3:01 PM EDT 04/29/2025 3:03 PM EDT Narrative [facility] - 05/06/2025 1:09 PM EDT FASTING:YES FASTING: YES [facility] LAB BLOOD ORDERABLES Final Resu lt Performing Organization Address City/[facility]/ZIP Co de Phone Number [facility] [address] [place] [phone] * Vitamin E (04/29/2025 3:01 PM EDT) Alpha-Tocopherol 14.1 5.7 - 19.9 mg/L [facility]/N [facility] Comment: Levels of alpha-tocopherol <5 mg/L are consistent with Vitamin E deficiency in adults. Beta-Gamma Tocopherol <1.0 <=4.3 mg/L [facility]/N [employer] [facility] Comment: Vitamin supplementation within 24 hours prior to blood draw may affect the accuracy of the results. This test was developed and its analytical performance characteristics have been determined by [employer]. It has not been cleared or approved by the U.S. Food and Drug Administration. This assay has been validated pursuant to the CLIA regulations and is used for clinical purposes. Blood Blood specimen / Unknown 04/29/2025 3:01 PM EDT 04/29/2025 3:03 PM EDT Narrative [facility] - 05/06/2025 1:09 PM EDT FASTING:YES FASTING: YES Artie [facility] LAB BLOOD ORDERABLES Final Resu Performing Organization Address [facility] Co de Phone Number [facility] [address] [facility] [address] * Vitamin B6 (04/29/2025 3:01 PM EDT) Pathologist [facility] Vitamin B6 4.0 2.1 - 21.7 ng/mL [facility]/[employer] Comment: Vitamin supplementation within 24 hours prior to blood draw may affect the accuracy of the results. This test was developed and its analytical performance characteristics have been determined by [facility] [place]. It has not been cleared or approved by the U.S. Food and Drug Administration. This assay has been validated pursuant to the CLIA regulations and is used for clinical purposes. Blood Blood specimen / Unknown 04/29/2025 3:01 PM EDT 04/29/2025 3:03 PM EDT Narrative [employer] - 05/06/2025 1:09 PM EDT FASTING:YES FASTING: YES [employer] [facility] LAB BLOOD ORDERABLES Final Resu lt [facility]/[place] [address] [facility] [place] [phone] * Lactate Dehydrogenase (LDH) (04/29/2025 3:01 PM EDT) Lactate Dehydrogenase (LDH) 241 120 - 250 U/L [facility] Blood Blood specimen / Unknown 04/29/2025 3:01 PM EDT 04/29/2025 3:03 PM EDT Narrative [employer] - 05/06/2025 1:09 PM EDT FASTING:YES FASTING: YES [facility] LAB BLOOD ORDERABLES Final Resu lt Performing Organization Address City/[facility]/ZIP Co de Phone Number [facility] [address] [place] [phone] * Homocysteine, Total, Serum (04/29/2025 3:01 PM EDT) Homocysteine 14.3 < or = 15.2 umol/L [facility] Comment: Homocysteine is increased by functional deficiency of folate or vitamin B12. Testing for methylmalonic acid differentiates between these deficiencies. Other causes of increased homocysteine include renal failure, folate antagonists such as methotrexate and phenytoin, and exposure to nitrous oxide. Rolly Bryant, et al., Leida [facility] Specialist Med. 1999;131(5):331-9. Blood Blood specimen / Unknown 04/29/2025 3:01 PM EDT 04/29/2025 3:03 PM EDT Narrative [facility] - 05/06/2025 1:09 PM EDT FASTING:YES FASTING: YES [facility] LAB BLOOD ORDERABLES Final Resu lt Performing Organization Address [facility] de Phone Number [facility] [address] [place] [phone] * Folate Level (04/29/2025 3:01 PM EDT) [facility] Folate, Serum 12.3 ng/mL [facility] Comment: Reference Range Low: <3.4 Borderline: 3.4-5.4 Normal: >5.4 Blood Blood specimen / Unknown 04/29/2025 3:01 PM EDT 04/29/2025 3:03 PM EDT Narrative [facility] - 05/06/2025 1:09 PM EDT FASTING:YES FASTING: YES [facility] LAB BLOOD ORDERABLES Final Resu lt Performing Organization Address [facility] de Phone Number [facility] [address] [place] [phone] * Ferritin (04/29/2025 3:01 PM EDT) [facility] Ferritin 92 24 - 380 ng/mL [facility] Blood Blood specimen / Unknown 04/29/2025 3:01 PM EDT 04/29/2025 3:03 PM EDT Narrative [facility] - 05/06/2025 1:09 PM EDT FASTING:YES FASTING: YES [facility] LAB BLOOD ORDERABLES Final Resu lt Performing Organization Address [facility] Co de Phone Number [facility] [address] [place] [phone] * (ABNORMAL) Creatine Kinase (CK) (04/29/2025 3:01 PM EDT) [facility] Creatine Kinase (CK) 910(H) 22 - 308 U/L [facility] Blood Blood specimen / Unknown 04/29/2025 3:01 PM EDT 04/29/2025 3:03 PM EDT Narrative [facility] - 05/06/2025 1:09 PM EDT FASTING:YES FASTING: YES us Artie Chalino DO LAB BLOOD ORDERABLES Final Resu lt [facility] [address] [place] [address] from Last 3 Months Insurance [employer] [place] [id number] Care Teams Knitting Machine Operator Relationship Specialty Start Date End Date Katiuska Hawley MD [address] [place] [address] [address] [place] [address] PCP - General 01/24/25
--- OUTSIDE RECORDS SUMMARY | 2025-06-24 11:30 | XMS_ITS | Clinical Summary ---
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 Phone Katiuska Hawley MD Primary Care Provider [phone] Allergies Active Allergy Reactions Criticality Noted Date [...] without lower urinary tract symptoms 03/14/2023 Esophagitis, Enochs grade B 01/04/2019 Gastritis and duodenitis 01/04/2019 Vitamin D deficiency 05/16/2018 Hypertension 04/18/2018 Tubular adenoma 10/11/2017 Fatty liver 01/29/2016 Hemorrhoids 06/14/2013 Anxiety 10/23/2012 Depression 09/24/2010 Encounters Date Type Department Care Team Description 05/24/2025 1:35 PM EDT - 05/24/2025 11:59 PM EDT Hospital Encounter Radiology Department - [address] [phone] Weakness Discharge Disposition: Home or Self Care 05/24/2025 1:35 PM EDT - 05/24/2025 11:59 PM EDT Hospital Encounter Radiology Department - [address] [phone] Weakness Discharge Disposition: Home or Self Care 05/24/2025 1:34 PM EDT - 05/24/2025 11:59 PM EDT Hospital Encounter Radiology Department - [address] [phone] Weakness Discharge Disposition: Home or Self Care 05/08/2025 2:18 PM EDT Anesthesia Event [facility] Endoscopy [address] [place] [phone] Reid Dominguez MD 05/08/2025 1:17 PM EDT - 05/08/2025 11:59 PM EDT Hospital Encounter [facility] Endoscopy [address] [place] [phone] Veronica Shannon MD Steele, Matthew G, CRNA Hx of colonic polyps Discharge Disposition: Home or Self Care from Last 3 Months Surgical History Surgery Date Site/Laterality Comments TONSILLECTOMY PROCEDURE: HISTORICAL TONSILLECTOMY COLONOSCOPY PROCEDURE: HISTORICAL COLONOSCOPY ADENOIDECTOMY tonsillectomy Medical History Medical History Date Comments Anxiety 10/23/2012 DX:Anxiety Depression 09/24/2010 DX:Depression Hemorrhoids 06/14/2013 DX:Hemorrhoids Hypertension 04/18/2018 DX:Hypertension Tubular adenoma 10/11/2017 DX:Tubular adeno ma Vitamin D deficiency 05/16/2018 DX:Vitamin D deficiency Fatty liver 01/29/2016 DX:Fatty liver Esophagitis, Enochs grade B 01/04/2019 DX:Esophagitis, Enochs grade B Duodenitis 01/04/2019 DX:Duodenitis Esophageal stenosis [...] your loved ones. For example, early childhood coordinator or elderly care for an older adult? [...] PM EST Office Visit Internal Medicine - [address] [place] [phone] Katiuska Hawley MD [address] [place] [phone] Health Maintenance Due Date Last Done Comments [...] Associated Problems Recent Progress Patient-Stated? Author Autogenera jauregui Goal Care Plan Autogenerated Problem No [employer] Devices Implanted Type Area Woodyard Crane Operator Device Identifier Shelf Expiration Date Model / Serial / Lot Solidback Acetabular Shell 60g - [id number] Implanted:Qty: 1 on 07/17/2024 by Vic Pierre MD at [facility] Hip Right: Hip [employer] [id number] 03/25/2026 700-04-60 G / / [id number] Hip Insert Acetab X3 10deg 36g - [id number] Implanted:Qty: 1 on 07/17/2024 by Vic Pierre MD at [facility] Hip Right: Hip [employer] [id number] 04/07/2028 623-10-36 G / / [id number] Hip Stem Acco Ii Sz8 127deg - [id number] Implanted:Qty: 1 on 07/17/2024 by Vic Pierre MD at [facility] Hip Right: Hip [employer] [id number] 05/10/2028 1354-6518 / / [id number] Hip Head Delta Radha 36mm 0 - [id number] Implanted:Qty: 1 on 07/17/2024 by Vic Pierre MD at [facility] Hip Right: Hip [employer] [id number] 01/27/2028 6570-0-13 6 / / [id number] Procedures Procedure Name Priority Date/Time Associated Diagnosis Comments MR THORACIC SPINE WO CONTRAST Routine 05/24/2025 3:28 PM EDT Weakness MR BRAIN WO CONTRAST Routine 05/24/2025 3:18 PM EDT Weakness MR CERVICAL SPINE WO CONTRAST Routine 05/24/2025 2:47 PM EDT Weakness COLONOSCOPY Routine 05/08/2025 2:48 PM EDT Hx of colonic polyps COMPREHENSIVE METABOLIC PANEL Routine 02/27/2025 12:08 PM EDT Screening for colorectal cancer Anemia, unspecified type Vitamin D deficiency Adult general medical examination Primary hypertension LIPID PANEL WITH REFLEX TO DIRECT LDL Routine 02/27/2025 12:08 PM EDT Screening for colorectal cancer Anemia, unspecified type Vitamin D deficiency Adult general medical examination Primary hypertension from Last 3 Months or Most Recently Relevant to Health Maintenance Results * MR Thoracic Spine wo Contrast (05/24/2025 3:28 PM EDT) Anatomical Region Laterality Modality T-spine, Spine Magnetic Resonan ce 05/24/2025 7:01 PM EDT Impressions 05/27/2025 8:09 AM EDT No abnormal cord signal detected. Mild degenerative changes. -------- FINAL REPORT -------- Dictated By: Lora Orlando Dictated Date: 05/24/2025 19:01 ET Assigned Physician: Lora Orlnado Reviewed and Electronically Signed By: Lora Orlando Signed Date: 05/27/2025 08:09 ET Workstation ID: [id number] Transcribed By: Self Edit Transcribed Date: 05/24/2025 [...] Vertebral body heights are maintained. Several subcentimeter [id number] signal lesions within the vertebral bodies likely [...] Signed Date: 05/27/2025 08:09 ET Workstation ID: [id number] Transcribed By: Self Edit Transcribed Date: 05/24/2025 19:15 ET Isidro Rich MD [facility] [place]ED[place] Fin al Result * MR [...] Signed Date: 05/27/2025 08:06 ET Workstation ID: [id number] Transcribed By: Self Edit Transcribed Date: 05/24/2025 [...] Signed Date: 05/27/2025 08:06 ET Workstation ID: [id number] Transcribed By: Self Edit Transcribed Date: 05/24/2025 18:31 ET us Isidro Rich MD IMG MRI PROCEDURES Fin [...] Signed Date: 05/27/2025 08:07 ET Workstation ID: [id number] Transcribed By: Self Edit Transcribed Date: 05/24/2025 [...] Dictated Date: 05/24/2025 18:37 ET Assigned Physician: Loar Orlando Reviewed and Electronically Signed By: Lora Orlando Signed Date: 05/27/2025 08:07 ET Workstation ID: [id number] Transcribed By: Self Edit Transcribed Date: 05/24/2025 19:01 ET Isidro Rich MD [facility] [place]EDURES Fin al Result * COLONOSCOPY Anesthesia - MAC; [facility] ENDOSCOPY (05/08/2025 2:48 PM EDT) Anatomical Region Laterality Modality Endoscopy 05/08/2025 2:25 PM EDT Impressions 05/08/2025 2:49 PM EDT - Internal hemorrhoids. - The examination was otherwise normal. - No specimens collected. Recommendation: - Discharge patient to home. - Repeat colonoscopy in 10 years for surveillance. Narrative 05/08/2025 2:49 PM EDT [facility] GI Patient Name: Norman Boykin Procedure Date: 05/08/2025 2:25 PM Date of [...] verified by the physician, the nurse, the foreign banknote teller and the electrical equipment technician in the pre-procedure area in [...] history of colonic polyps CPT copyright 2020 [employer]. All rights reserved. The codes documented in this report are preliminary and upon x ray equipment tester review may be revised to meet current compliance requirements. Veronica Shannon MD 05/08/2025 2:49:26 PM This report has been signed electronically.Veronica Shannon MD Number of Addenda: 0 Note Initiated On: 05/08/2025 2:25 PM Scope Withdrawal Time: 0 hours 14 minutes 32 seconds Scope In: 2:30:28 PM Scope Out: 2:47:13 PM Endoscopy Department at [facility] - [address] [place] [phone] Procedure Note Veronica Shannon MD - 05/08/2025 [facility] GI Patient Name: Norman Boykin Procedure Date: 05/08/2025 2:25 PM Date of [...] the physician, the nurse, theanesthetist and the electrical equipment technician in the pre-procedure area in [...] history of colonic polyps CPT copyright 2020 [employer]. All rights reserved. The codes documented in this report are preliminary and upon x ray equipment tester reviewmay be revised to meet current compliance requirements. Veronica Shannon MD 05/08/2025 2:49:26 PM This report has been signed electronically.Veronica Shannon MD Number of Addenda: 0 Note Initiated On: 05/08/2025 2:25 PM Scope Withdrawal Time: 0 hours 14 minutes 32 seconds Scope In: 2:30:28 PM Scope Out: 2:47:13 PM Endoscopy Department at [facility] - [address] [place] [phone] IMPRESSION: - Internal hemorrhoids. - The examination was otherwise normal. - No specimens collected. Recommendation: - Discharge patient to home. - Repeat colonoscopy in 10 years forsurveillance. us Veronica Shannon MD GI~PROCEDURE ORDERABLES Fin al Result * Lipid panel with reflex to direct LDL (02/27/2025 12:08 PM EDT) Cholesterol 188 0 - 200 mg/dL LAB CHEMISTRY METHOD 02/27/2025 7:33 PM EDT [facility] Triglycerides 63 0 - 150 mg/dL LAB CHEMISTRY METHOD 02/27/2025 7:33 PM EDT [facility] HDL 87 >=40 mg/dL LAB CHEMISTRY METHOD 02/27/2025 7:33 PM EDT [facility] LDL Calculated 88 0 - 100 mg/dL LAB CHEMISTRY METHOD 02/27/2025 7:33 PM EDT [facility] VLDL Cholesterol Napoleon 12.6 mg/dL LAB CHEMISTRY METHOD 02/27/2025 7:33 PM EDT [facility] Non HDL Chol. (LDL+VLDL) 101 <145 mg/dL LAB CHEMISTRY METHOD 02/27/2025 7:33 PM EDT [facility] Chol/HDL Ratio 2.2 0.0 - 4.4 LAB CHEMISTRY METHOD 02/27/2025 7:33 PM EDT [facility] Blood Venous blood specimen / Unknown Venipuncture / Unknown 02/27/2025 12:08 PM EDT 02/27/2025 12:08 PM EDT us Katiuska Hawley MD LAB BLOOD ORDERABLES Final Res ult [facility] [address] [place] [address], [place] [phone] * (ABNORMAL) Comprehensive metabolic panel (02/27/2025 12:08 PM EDT) Sodium 140 133 - 145 mmol/L LAB CHEMISTRY METHOD 02/27/2025 7:28 PM [facility] Potassium 3.6 3.5 - 5.5 mmol/L LAB CHEMISTRY METHOD 02/27/2025 7:28 PM [facility] Chloride 106 96 - [...] unit/L LAB CHEMISTRY METHOD 02/27/2025 7:28 PM EDT [facility] Total Protein 7.7 6.0 - 8.0 g/dL LAB CHEMISTRY METHOD 02/27/2025 7:28 PM EDT [facility] Albumin 4.0 3.2 - 5.0 g/dL LAB CHEMISTRY METHOD 02/27/2025 7:28 PM EDT [facility] Total Bilirubin 0.6 0.0 - 1.4 mg/dL LAB CHEMISTRY METHOD 02/27/2025 7:28 PM EDT [facility] Blood Venous blood specimen / Unknown Venipuncture / Unknown 02/27/2025 12:08 PM EDT 02/27/2025 12:08 PM EDT us Katiuska Hawley MD LAB BLOOD ORDERABLES Final Res ult [facility] [address] [place] [address], from Last 3 Months or Most Recently Relevant to Health Maintenance Additional Health Concerns Active Problems Noted Date [...] currently active code status orders. 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
== END 2025-06-24 10:00 | disposition home or self-care (01) ==
LOC: HO.HMGAL 09:59
PROVIDERS: PCP Internal Medicine; Visit Provider Registered Nurse Emergency
DX: J30.89 Other allergic rhinitis (principal)
CPT/HCPCS: 95117; 95165

== ENCOUNTER 2025-07-22 09:49 | Outpatient (AMB) | payer OTHER, SELFPAY | END 2025-07-22 09:50 | disposition home or self-care (01) | LOC: HO.HMGAL 09:49 | PROVIDERS: PCP Internal Medicine; Visit Provider Registered Nurse Emergency | DX: J30.89 Other allergic rhinitis (principal) | CPT/HCPCS: 95117; 95165 ==